=== PATIENT | female | born 1975 | race Caucasian/White ===

== ENCOUNTER 2016-07-17 12:39 | Inpatient (IN) | payer OTHER, SELFPAY ==
[~2016-07-17] VITALS: Ht 161.3 cm; Wt 74.7 kg
[2016-07-17] MEDS ORDERED: CYCLOBENZAPRINE 10 MG TAB PO PRN (15:30)
[2016-07-17] MEDS ORDERED: ONDANSETRON 4MG/2ML VIAL (J2405) IV PRN (15:30)
[2016-07-17] MEDS ORDERED: ACETAMINOPHEN TAB 650MG DOSE (2X325MG) PO PRN (15:30)
[2016-07-17] MEDS ORDERED: ONDANSETRON 4 MG TAB (S0181) PO PRN (15:30)
[2016-07-17 15:35] VITALS: BP 130/80
[2016-07-17 16:07] LABS: BASO % 0.5 % (0.0-1.0); EOS # 0.2 K/mm3 (0.0-0.50); EOS % 2.5 % (0.0-3.0); LARGE UNSTAINED CELL # 0.2 K/mm3 (0.0-0.4); LARGE UNSTAINED CELL % 2.3 % (0.0-4.0); LYMPH # 1.9 K/mm3 (1.5-4.5); LYMPH % 25.7 % (24.0-44.0); MEAN CORPUSCULAR HEMOGLOBIN 29.4 pg (27.0-33.0); MEAN CORPUSCULAR HGB CONC 33.7 g/dl (32.0-36.5); MEAN CORPUSCULAR VOLUME 87.3 fl (80.0-96.0); MONO # 0.4 K/mm3 (0.0-0.8); MONO % 5.2 % (0.0-5.0); NEUTROPHILS # 4.4 K/mm3 (1.8-7.7); NEUTROPHILS % 63.9 % (36.0-66.0); PLATELET COUNT, AUTOMATED 462 k/mm3 (150-450); RED CELL DISTRIBUTION WIDTH 12.4 % (11.5-14.5); WHITE BLOOD COUNT 6.8 K/mm3 (4.0-10.0)
[2016-07-17 16:32] LABS: ALBUMIN 3.5 GM/DL (3.2-5.2); ALKALINE PHOSPHATASE 62 U/L (45-117); ALT/SGPT 50 U/L (12-78); ANION GAP 7 MEQ/L (8-16); AST/SGOT 39 U/L (15-37); BILIRUBIN,TOTAL 0.4 MG/DL (0.2-1.0); BLOOD UREA NITROGEN 6 MG/DL (7-18); CALCIUM LEVEL 8.7 MG/DL (8.5-10.1); CARBON DIOXIDE LEVEL 30 MEQ/L (21-32); CHLORIDE LEVEL 103 MEQ/L (98-107); CREATININE FOR GFR 0.62 MG/DL (0.55-1.02); GLOMERULAR FILTRATION RATE > 60.0 (>58); GLUCOSE, FASTING 93 MG/DL (70-105); MAGNESIUM LEVEL 2.1 MG/DL (1.8-2.4); POTASSIUM SERUM 3.9 MEQ/L (3.5-5.1); SODIUM LEVEL 140 MEQ/L (136-145)
[2016-07-17] MEDS ORDERED: IPRATROPIUM 0.5MG/ALBUTEROL 2.5MG INH SOL UD 3ML (DUONEB)(J7620) NEB PRN (16:45)
--- NOTE | 2016-07-17 17:16 | HPEPDOC ---
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 difficile colitis. She has been complaining of persistent occipital headache that worsens with coughing, and she was transferred from [facility] for neurologic evaluation. The patient reports that she recently moved to the [facility] and was previously stationed in [place]. Around the beginning of June, she was still stationed in [place], she had a hospitalization for rhabdomyolysis. She states that when she got to the [facility] at the very end of June she was experiencing lots of chills as well as sweats and she went to an urgent care center around July 07. She states that she was subsequently prescribed antibiotics for sinus infection, and after being on the antibiotic she began to develop diarrhea. She states that she started coughing about a week before these chills came on in the coughing was accompanied by pain at the base of her head. She states that the pain at the base of her head came on several days after the coughing began, and while it is a somewhat constant dull pain, when she coughs or when there is a pressure change outside, she has an acute feeling as if someone has hit her in the back of her head with a sledgehammer. She states that a few seconds after she stops coughing, the extreme, acute pain subsides. She has been on antitussives as well as morphine at [facility] for the headaches with little improvement. Of note, she states that today the pressure seemed to move from the base of her head to more being on the top of her head. As far as her stool goes, she reports that it was previously watery but has now begun to form and currently looks like softserve ice cream. Past medical history: Recent rhabdomyolysis Past surgical history: Right ACL repair, laparotomy for endometriosis, right tear duct surgery, D&C Family history: One brother with a Chiari malformation and another brother with benign brain tumor Social history: The patient is active-duty and recently moved to the [facility]. She denies ever having smoked and does not use any illicit drugs or drink alcohol. Allergies: Latex, Itraconzaole Review of systems: General: Positive for fever and chills Eyes: Negative for vision changes and ocular discharge ENT: Negative for sore throat and nose bleed Cardiovascular: Negative for chest pain and palpitations Respiratory: Positive for cough and shortness of breath GI: Positive for nausea and diarrhea, negative for vomiting and constipation Musculoskeletal: Negative for neck and back pain Skin: Negative for rash Neuro: Negative for dizziness, numbness, tingling, positive for headache Psych: Positive for anxiety, negative for depression and suicidal ideation Endocrine: Negative for polyuria : Negative for dysuria Heme: Negative for bleeding Home meds: See below Physical exam: Vital signs: Vital Sign - Last 24 Hours 07/17/16 07/17/16 15:35 16:00 Temp 97.1 Pulse 75 Resp 16 B/P (MAP) 130/80 (97) Pulse Ox 99 O2 Delivery Room Air Room Air Gen.: awake, alert, no acute distress Eyes: Extraocular movements intact, normal sclera ENT: Moist mucous membranes Cardiovascular: RRR, no murmurs rubs or gallops Lungs: clear to auscultation bilaterally with the exception of decreased breath sounds in the right base, patient has a deep, wet cough Abdomen: Soft, NT/ND, normal BS Musculoskeletal: normal range of motion Extremities: No peripheral edema Neuro: alert and oriented 3, normal speech, no focal deficits Psych: Normal mood with congruent affect Labs and radiology: See below CBC and CMP are unremarkable Urine culture at [facility] was negative C. 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 difficile colitis. She has been complaining of persistent occipital headache that worsens with coughing, and she was transferred from [facility] for neurologic evaluation. 1. Healthcare associated pneumonia: The patient is afebrile with a normal white count and is not requiring oxygen. We will place her on Levaquin. We will also recheck blood cultures. 2. C. difficile colitis: The patient reports that her diarrhea has started to improve and form up since she was started on Flagyl. We will continue Flagyl. The patient reports that she's been eating very little, so we'll continue her on IV fluids as well as Bacid. 3. Occipital headache, worsened with coughing: We will treat the patient's underlying cough with Tessalon Perles, Mucinex, and TussiCaps. For the headache , we will give her Toradol and Flexeril. I have also spoken with Dr. Buckley of neurology who has graciously agreed to see the patient in consultation. As per his recommendation, we will check an MR venogram to rule out any venous thrombosis. DVT prophylaxis: SCDs Dispo: admit as an inpatient to the service of Dr. Ban Gibbs CODE STATUS: Full code Vital Signs see above Laboratory Data Labs 24H Laboratory Tests 2 07/17/16 15:53: White Blood Count 6.8, Red Blood Count 4.24, Hemoglobin 12.4, Hematocrit 37.0, Mean Corpuscular Volume 87.3, Mean Corpuscular Hemoglobin 29.4, Mean Corpuscular Hemoglobin Concent 33.7, Red Cell Distribution Width 12.4, Platelet Count 462H, Neutrophils (%) (Auto) 63.9, Lymphocytes (%) (Auto) 25.7, Monocytes (%) (Auto) 5.2H, Eosinophils (%) (Auto) 2.5, Basophils (%) (Auto) 0.5, Neutrophils # (Auto) 4.4, Lymphocytes # (Auto) 1.9, Monocytes # (Auto) 0.4, Eosinophils # (Auto) 0.2, Basophils # (Auto) 0.0, Large Unclassified Cells % 2.3 , Large Unclassified Cells # 0.2, Anion Gap 7L, Glomerular Filtration Rate > 60.0, Blood Urea Nitrogen 6L, Creatinine 0.62, Sodium Level 140, Potassium Level 3.9, Chloride Level 103, Carbon Dioxide Level 30, Calcium Level 8.7, Aspartate Amino Transf (AST/SGOT) 39H, Alanine Aminotransferase (ALT/SGPT) 50, Alkaline Phosphatase 62, Total Bilirubin 0.4, Total Protein 7.0, Albumin 3.5, Magnesium Level 2.1, Albumin/Globulin Ratio 1.00 CBC/BMP Laboratory Tests 07/17/16 15:53 Red Blood Count 4.24, Mean Corpuscular Volume 87.3, Mean Corpuscular Hemoglobin 29.4, Mean Corpuscular Hemoglobin Concent 33.7, Red Cell Distribution Width 12.4 , Neutrophils (%) (Auto) 63.9, Lymphocytes (%) (Auto) 25.7, Monocytes (%) (Auto ) 5.2 H, Eosinophils (%) (Auto) 2.5, Basophils (%) (Auto) 0.5, Neutrophils # ( Auto) 4.4, Lymphocytes # (Auto) 1.9, Monocytes # (Auto) 0.4, Eosinophils # (Auto ) 0.2, Basophils # (Auto) 0.0, Calcium Level 8.7, Aspartate Amino Transf (AST/ SGOT) 39 H, Alanine Aminotransferase (ALT/SGPT) 50, Alkaline Phosphatase 62, Total Bilirubin 0.4, Total Protein 7.0, Albumin 3.5 Microbiology Microbiology 07/17/16 Blood Culture, Received Pending 07/17/16 Blood Culture, Received Pending Home Medications No Active Prescriptions or Reported Meds Allergies Coded Allergies: Itraconazole (Verified Allergy, Unknown, 07/17/16) HIVES Latex (Verified Allergy, Unknown, 07/17/16) FAISAL WINSLOW Jul 17, 2016 17:16
[2016-07-17] MEDS: NS 1,000 ML IV SCH (17:30)
[2016-07-17] MEDS: KETOROLAC 30 MG/ML VIAL (J1885) IV PRN (18:10)
[2016-07-17] MEDS: metroNIDAZOLE 500 MG in APPROPRIATE DILUENT 1 EA IV SCH (21:15)
[2016-07-17] MEDS: BENZONATATE 100 MG CAP PO SCH (21:15)
[2016-07-17] MEDS: TUSSICAPS ER 10/8MG CAPSULE PO SCH (21:15)
[2016-07-17] MEDS: guaiFENesin ER 600 MG TAB PO SCH (21:15)
[2016-07-17] MEDS: LACTOBACILLUS ACIDOPHILUS CAP (BACID) PO SCH (21:15)
[2016-07-17 22:00] VITALS: BP 119/55
[2016-07-18] MEDS: metroNIDAZOLE 500 MG in APPROPRIATE DILUENT 1 EA IV SCH ×2 (04:11→13:41)
[2016-07-18] MEDS: NS 1,000 ML IV SCH ×2 (04:11→13:41)
[2016-07-18 05:59] LABS: BASO % 0.6 % (0.0-1.0); EOS # 0.3 K/mm3 (0.0-0.50); EOS % 4.3 % (0.0-3.0); LARGE UNSTAINED CELL # 0.3 K/mm3 (0.0-0.4); LARGE UNSTAINED CELL % 3.7 % (0.0-4.0); LYMPH # 2.5 K/mm3 (1.5-4.5); LYMPH % 32.5 % (24.0-44.0); MEAN CORPUSCULAR HEMOGLOBIN 30.3 pg (27.0-33.0); MEAN CORPUSCULAR HGB CONC 34.3 g/dl (32.0-36.5); MEAN CORPUSCULAR VOLUME 88.5 fl (80.0-96.0); MONO # 0.4 K/mm3 (0.0-0.8); MONO % 6.2 % (0.0-5.0); NEUTROPHILS # 3.7 K/mm3 (1.8-7.7); NEUTROPHILS % 52.7 % (36.0-66.0); PLATELET COUNT, AUTOMATED 461 k/mm3 (150-450); RED CELL DISTRIBUTION WIDTH 12.4 % (11.5-14.5); WHITE BLOOD COUNT 6.9 K/mm3 (4.0-10.0)
[2016-07-18 06:00] VITALS: BP 115/64
[2016-07-18] MEDS: BENZONATATE 100 MG CAP PO SCH ×3 (06:11→21:01)
[2016-07-18 06:21] LABS: ANION GAP 4 MEQ/L (8-16); BLOOD UREA NITROGEN 8 MG/DL (7-18); CALCIUM LEVEL 8.4 MG/DL (8.5-10.1); CARBON DIOXIDE LEVEL 28 MEQ/L (21-32); CHLORIDE LEVEL 108 MEQ/L (98-107); CREATININE FOR GFR 0.64 MG/DL (0.55-1.02); GLOMERULAR FILTRATION RATE > 60.0 (>58); GLUCOSE, FASTING 97 MG/DL (70-105); POTASSIUM SERUM 4.1 MEQ/L (3.5-5.1); SODIUM LEVEL 140 MEQ/L (136-145)
[2016-07-18] MEDS ORDERED: LevoFLOXacin IV 750 MG in APPROPRIATE DILUENT 1 EA IV SCH (07:00)
[2016-07-18] MEDS: KETOROLAC 30 MG/ML VIAL (J1885) IV PRN (07:58)
[2016-07-18] MEDS: TUSSICAPS ER 10/8MG CAPSULE PO SCH ×2 (09:18→21:02)
[2016-07-18] MEDS: LACTOBACILLUS ACIDOPHILUS CAP (BACID) PO SCH ×2 (09:18→21:02)
[2016-07-18] MEDS: guaiFENesin ER 600 MG TAB PO SCH ×2 (09:18→21:02)
--- NOTE | 2016-07-18 12:25 | REP ---
MRA HEAD WITHOUT AND WITH CONTRAST: HISTORY: Headache. CONTRAST: ProHance 13 mL. Unenhanced and enhanced 2D [id number] MR venography were performed. There are no filling defects in the deep venous system or dural sinuses. The sinuses are patent. There is no stenosis. IMPRESSION: There is no sinus thrombosis. Signed by Pastor Lay MD 07/18/2016 12:27 P
[2016-07-18 14:00] VITALS: BP 121/65
--- NOTE | 2016-07-18 14:46 | IPNPDOC ---
Text Note Date of Service The patient was seen on 07/18/16. NOTE Subjective: Patient was seen and examined at bedside. Her chief complaint today continues to be a constant posterior headache that worsens with coughing and straining and has improved with IV Toradol and PO Flexeril. It is currently a 4/10 in severity, down from 8-10/10 at its worse. Of note, she has had a similar headache in the remote past () which quickly subsided after using decongestants and has never had this type of headache last this long. Reports some return of her appetite and improving diarrhea: two soft, formed stools without blood. Still reports a dry cough without sputum production. Her fever and chills at time of admission have since resolved. Some nausea and shortness of breath when she coughs heavily. Denies chest pain, photophobia, stiff neck, abdominal pain, vomiting or constipation. Objective: Vitals: T:98.3F BP:80 RR:16 P:115/64 O2 Saturation: 96% on room air General: Alert. Well nourished female in no acute distress. Appears her stated age. Lying in bed comfortably. Occasionally coughs. HEENT: Head:normocephalic, atraumatic. Eyes: EOMI but eye movement exacerbates her occipital headache. No nystagmus, sclera are nonicteric. Nose: No external lesions Throat: moist buccal mucosa Neck: Supple Respiratory: clear to auscultation bilaterally with no wheezes, rales, or rhonchi - however hard to hear with disposable stethoscope. No respiratory distress or accessory muscle use. Cardiovascular: regular rate and rhythm, with no murmurs, rubs or gallops. Abdomen: mild LLQ tenderness to palpation without rebound. Soft, nondistended, no hepatosplenomegaly appreciated. Bowel sounds present. Extremities: no swelling in either lower extremity bilaterally Neurological: AAOx3. No focal neurologic deficits appreciated bilaterally Integumentary: skin free from rashes, lesions, abrasions Vascular: pulses palpable and symmetrical in upper and lower extremities bilaterally Laboratory data: Labs reviewed. See below for full laboratory data. Microbiology: Urine and blood culture x2 pending Imaging: MRA head: No venous sinus thrombosis Assessment: 41 yo F is presenting for a recent hospitalization of rhabdomyolysis in early June 2016 who was transferred from [facility] where she was admitted with HAP and subsequently developed C. difficile colitis. -Healthcare associated pneumonia: Patient remains afebrile without leukocytosis. Satting well without supplemental oxygen. Patient tolerating PO liquids and solids well. Switched IV Levofloxacin to continue as oral doses. -C. difficile colitis: Diarrhea improving. Also switched IV Flagyl to continue as PO. Discontinued IV fluids as tolerating oral fluids. . -Occipital headache: MRA of the head was negative for venous sinus thrombosis. Will continue to treat cough with Tessalon Perles, Mucinex and TussiCaps. Continue Toradol and Flexeril PRN. Will treat symptomatically and monitor for any changes. Neurology has been consulted: Dr. Buckley. Follow neurology recommendations. DVT prophylaxis: SCDs CODE STATUS: FULL CODE Immunizations as per protocol. My preceptor for this patient encounter was Dr. Ban Gibbs, and was physically present in the building during the encounter and was fully available. As needed , all aspects of the patient interview, examination, medical decision making process, and medical care plan development were reviewed and approved by the preceptor. Preceptor is aware and concurs with the plan as stated in the body of this note and will attest to such by his/her cosignature VS,Angel, I+O VS, Angel, I+O Laboratory Tests 07/17/16 15:53 Red Blood Count 4.24, Mean Corpuscular Volume 87.3, Mean Corpuscular Hemoglobin 29.4, Mean Corpuscular Hemoglobin Concent 33.7, Red Cell Distribution Width 12.4 , Neutrophils (%) (Auto) 63.9, Lymphocytes (%) (Auto) 25.7, Monocytes (%) (Auto ) 5.2 H, Eosinophils (%) (Auto) 2.5, Basophils (%) (Auto) 0.5, Neutrophils # ( Auto) 4.4, Lymphocytes # (Auto) 1.9, Monocytes # (Auto) 0.4, Eosinophils # (Auto ) 0.2, Basophils # (Auto) 0.0, Calcium Level 8.7, Aspartate Amino Transf (AST/ SGOT) 39 H, Alanine Aminotransferase (ALT/SGPT) 50, Alkaline Phosphatase 62, Total Bilirubin 0.4, Total Protein 7.0, Albumin 3.5 07/18/16 05:43 Red Blood Count 3.78 L, Mean Corpuscular Volume 88.5, Mean Corpuscular Hemoglobin 30.3, Mean Corpuscular Hemoglobin Concent 34.3, Red Cell Distribution Width 12.4, Neutrophils (%) (Auto) 52.7, Lymphocytes (%) (Auto) 32.5, Monocytes (%) (Auto) 6.2 H, Eosinophils (%) (Auto) 4.3 H, Basophils (%) ( Auto) 0.6, Neutrophils # (Auto) 3.7, Lymphocytes # (Auto) 2.5, Monocytes # (Auto ) 0.4, Eosinophils # (Auto) 0.3, Basophils # (Auto) 0.0, Calcium Level 8.4 L Vital Signs Date Time Temp Pulse Resp B/P (MAP) Pulse Ox O2 Delivery O2 Flow Rate FiO2 07/18/16 08:00 Room Air 07/18/16 06:00 98.3 16 115/64 (81) 96 07/17/16 22:00 80 I&O- Last 24 Hours up to 6 AM 07/18/16 06:00 Intake Total 240 ml Output Total 1000 ml Balance -760 ml EDY JOSEPH OGME-1 Jul 18, 2016 13:50
[2016-07-18] MEDS: metroNIDAZOLE (FLAGYL) 500 MG TAB PO SCH (21:01)
[2016-07-18 21:50] VITALS: BP 129/75
[2016-07-19] MEDS: metroNIDAZOLE (FLAGYL) 500 MG TAB PO SCH (05:44)
[2016-07-19] MEDS: BENZONATATE 100 MG CAP PO SCH (05:45)
[2016-07-19] MEDS ORDERED: LevoFLOXacin 750 MG TABLET PO SCH (06:00)
[2016-07-19] MEDS: KETOROLAC 30 MG/ML VIAL (J1885) IV PRN (06:37)
[2016-07-19 07:31] LABS: BASO # 0.1 K/mm3 (0.0-0.2); EOS # 0.4 K/mm3 (0.0-0.50); LARGE UNSTAINED CELL # 0.3 K/mm3 (0.0-0.4); LARGE UNSTAINED CELL % 3.7 % (0.0-4.0); LYMPH # 2.6 K/mm3 (1.5-4.5); LYMPH % 36.7 % (24.0-44.0); MEAN CORPUSCULAR HGB CONC 32.1 g/dl (32.0-36.5); MEAN CORPUSCULAR VOLUME 90.6 fl (80.0-96.0); MONO # 0.4 K/mm3 (0.0-0.8); NEUTROPHILS # 3.5 K/mm3 (1.8-7.7); NEUTROPHILS % 48.6 % (36.0-66.0); PLATELET COUNT, AUTOMATED 492 k/mm3 (150-450); RED CELL DISTRIBUTION WIDTH 12.5 % (11.5-14.5); WHITE BLOOD COUNT 7.1 K/mm3 (4.0-10.0)
[2016-07-19 07:32] LABS: ANION GAP 7 MEQ/L (8-16); BLOOD UREA NITROGEN 7 MG/DL (7-18); CALCIUM LEVEL 9.1 MG/DL (8.5-10.1); CARBON DIOXIDE LEVEL 31 MEQ/L (21-32); CHLORIDE LEVEL 104 MEQ/L (98-107); CREATININE FOR GFR 0.69 MG/DL (0.55-1.02); GLOMERULAR FILTRATION RATE > 60.0 (>58); GLUCOSE, FASTING 100 MG/DL (70-105); MAGNESIUM LEVEL 2.2 MG/DL (1.8-2.4); POTASSIUM SERUM 4.2 MEQ/L (3.5-5.1); SODIUM LEVEL 142 MEQ/L (136-145)
[2016-07-19 08:00] VITALS: BP 99/59
[2016-07-19] MEDS: LACTOBACILLUS ACIDOPHILUS CAP (BACID) PO SCH (09:05)
[2016-07-19] MEDS: TUSSICAPS ER 10/8MG CAPSULE PO SCH (09:06)
[2016-07-19] MEDS: guaiFENesin ER 600 MG TAB PO SCH (09:06)
[2016-07-19] MEDS ORDERED: KETOROLAC TROMETHAMINE 10 MG TAB PO PRN (10:00)
[2016-07-19] MEDS ORDERED: BENZ100C5 PO (11:07)
[2016-07-19] MEDS ORDERED: MUCI600T31 PO (11:07)
[2016-07-19] MEDS ORDERED: KETO10TAB PO (11:07)
[2016-07-19] MEDS ORDERED: LEVO750T13 PO (11:07)
[2016-07-19] MEDS ORDERED: METR1TAB66 PO (11:07)
[2016-07-19] MEDS ORDERED: RISATAB3 PO ×2 (11:34→15:35)
[2016-07-19] MEDS ORDERED: TYLE325T5 PO (11:34)
[2016-07-19] MEDS ORDERED: TUSS1CAP5 PO ×2 (13:53→15:35)
[2016-07-19] MEDS ORDERED: BENZ200C53 PO (15:35)
[2016-07-19] MEDS ORDERED: MUCI600T37 PO (15:35)
[2016-07-19] MEDS ORDERED: TYLE500T78 PO (15:44)
--- NOTE | 2016-07-19 16:09 | CR ---
DATE OF CONSULTATION: 07/19/2016 CONSULTATION REPORT FOR: Dr. Betzaida Sykes REASON FOR CONSULTATION: Headache. 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 The patient is here with the chief complaint of a headache which started soon after coughing multiple times. Due to her pneumonia, she has been coughing excessively. She has pain at the back of the head and over the top of the head. The patient denies having any light sensitivity or sound sensitivity with her headache. She states that she has been experiencing some nausea. The patient's vision is stable. She does not have any meningismus. She has not had any fever or elevated white count. The patient did have a head CT which was reportedly normal. The patient was transferred from [facility] where she had that image. The patient is agreeable to undergo an MR venogram to rule out any venous sinus thrombosis. PAST MEDICAL HISTORY: Rhabdomyolysis. PAST SURGICAL HISTORY: Right anterior cruciate ligament (ACL) repair, laparotomy for endometriosis, right tear duct surgery, dilation and curettage. FAMILY HISTORY: Brother with Chiari malformation and brother with brain tumor. SOCIAL HISTORY: The patient denies tobacco use, alcohol or illicit drug use. REVIEW OF SYSTEMS: 14-point review of systems negative except as per history of present illness (HPI). ALLERGIES: LATEX, ITRACONOZOLE. CURRENT MEDICATIONS: - levofloxacin 750 mg - Flagyl - Mucinex - Flexeril 10 mg - ketorolac 15 mg - Bacid - Zofran PHYSICAL EXAMINATION: Blood pressure 130/80, pulse rate 75, respiratory rate 16, temperature is 97.1 degrees Fahrenheit, oxygenation 99% on room air. Current height 63.5 inches and weight 74.7 kg. The patient is alert and oriented to person, place and time. Speech, language, comprehension, and repetition are intact. Pupils are 3 mm round and reactive to light. Deep tendon reflexes are 2+ throughout. Romberg testing deferred. No meningismus on examination. Sensation V1, V2 and V3 intact to light touch. No facial asymmetry on activation. Palate elevates symmetrically. Tongue is midline. No weakness of sternocleidomastoids bilaterally. Strength 5/5 including bilateral deltoids, biceps, triceps and case assembler, iliopsoas, quadriceps, anterior tibialis. Deep tendon reflexes are 2+ throughout. Sensory is intact to light touch in all four extremities and trunk and face. Coordination: Normal [id number] without any signs of ataxia or dysmetria. ASSESSMENT: Episodic headache secondary to excessive coughing, rule out sinus venous thrombosis. PLAN: Recommend MR venogram to exclude any sinus venous thrombosis. Continue supportive care for headache. There is no evidence to suggest the patient has meningitis. I would hold off on doing a spinal tap at this time.
--- NOTE | 2016-07-19 21:56 | DS.PDOC ---
Discharge Summary General Date of Admission Jul 17, 2016 at 15:29 Discharge Summary PROCEDURES PERFORMED DURING STAY: [None]. ADMITTING DIAGNOSES: 1. . 2. . 3. . DISCHARGE DIAGNOSES: 1. . 2. . 3. . COMPLICATIONS/CHIEF COMPLAINT: Pneumonia And C Diff. HISTORY OF PRESENT ILLNESS: . HOSPITAL COURSE: . DISCHARGE MEDICATIONS: Please see below. ALLERGIES: Please see below. PHYSICAL EXAMINATION ON DISCHARGE: VITAL SIGNS: Please see below. GENERAL: HEENT: NECK: CARDIOVASCULAR EXAMINATION: RESPIRATORY EXAMINATION: ABDOMINAL EXAMINATION: EXTREMITIES: SKIN: NEUROLOGICAL EXAMINATION: PSYCHIATRIC EXAMINATION: LABORATORY DATA: Please see below. IMAGING: PROGNOSIS: ACTIVITY: [As tolerated]. DIET: . DISCHARGE PLAN: DISPOSITION: Home, Self-Care. DISCHARGE INSTRUCTIONS: 1. . 2. . 3. . ITEMS TO FOLLOWUP ON ON OUTPATIENT: 1. . 2. . 3. . DISCHARGE CONDITION: [Stable]. TIME SPENT ON DISCHARGE: Greater than minutes. Vital Signs/I&Os Vital Signs Date Time Temp Pulse Resp B/P (MAP) Pulse Ox O2 Delivery O2 Flow Rate FiO2 07/19/16 08:00 99.0 72 16 99/59 (72) 99 Room Air I&O- Last 24 Hours up to 6 AM 07/19/16 06:00 Intake Total 2850 ml Output Total 3500 ml Balance -650 ml Laboratory Data Labs 24H Laboratory Tests 2 07/19/16 06:26: White Blood Count 7.1, Red Blood Count 4.19, Hemoglobin 12.2, Hematocrit 37.9, Mean Corpuscular Volume 90.6, Mean Corpuscular Hemoglobin 29.0, Mean Corpuscular Hemoglobin Concent 32.1, Red Cell Distribution Width 12.5, Platelet Count 492H, Neutrophils (%) (Auto) 48.6, Lymphocytes (%) (Auto) 36.7, Monocytes (%) (Auto) 5.0, Eosinophils (%) (Auto) 5.0H, Basophils (%) (Auto) 1.0, Neutrophils # (Auto) 3.5, Lymphocytes # (Auto) 2.6, Monocytes # (Auto) 0.4, Eosinophils # (Auto) 0.4, Basophils # (Auto) 0.1, Large Unclassified Cells % 3.7 , Large Unclassified Cells # 0.3, Anion Gap 7L, Glomerular Filtration Rate > 60.0, Blood Urea Nitrogen 7, Creatinine 0.69, Sodium Level 142, Potassium Level 4.2, Chloride Level 104, Carbon Dioxide Level 31, Calcium Level 9.1, Magnesium Level 2.2 CBC/BMP Laboratory Tests 07/19/16 06:26 Red Blood Count 4.19, Mean Corpuscular Volume 90.6, Mean Corpuscular Hemoglobin 29.0, Mean Corpuscular Hemoglobin Concent 32.1, Red Cell Distribution Width 12.5 , Neutrophils (%) (Auto) 48.6, Lymphocytes (%) (Auto) 36.7, Monocytes (%) (Auto ) 5.0, Eosinophils (%) (Auto) 5.0 H, Basophils (%) (Auto) 1.0, Neutrophils # ( Auto) 3.5, Lymphocytes # (Auto) 2.6, Monocytes # (Auto) 0.4, Eosinophils # (Auto ) 0.4, Basophils # (Auto) 0.1, Calcium Level 9.1 Microbiology Microbiology 07/17/16 Blood Culture - Preliminary, Resulted No Growth after 48 hours. All Specime... 07/17/16 Blood Culture - Preliminary, Resulted No Growth after 48 hours. All Specime... 07/17/16 Urine Culture - Final, Complete Discharge Medications Scheduled (Laury-Bid Probiotic) 1 Tab Tab, 1 TAB PO BID Chlorphenir/Hydrocod Polistir (Tussicaps 10-8 mg) 1 Cap Cap, 1 CAP PO BID Guaifenesin (Mucinex) 600 Mg Tab, 600 MG PO BID Levofloxacin Hemihydrate (Levofloxacin) 750 Mg Tab, 750 MG PO DAILY Metronidazole (Metronidazole) 500 Mg Tab, 500 MG PO Q8H Scheduled PRN Acetaminophen (Tylenol Extra Strength) 500 Mg Tab, 1,000 MG PO Q6HP PRN for HEADACHE Benzonatate (Benzonatate) 200 Mg Cap, 200 MG PO TID PRN for COUGH MDD 3 Ketorolac Tromethamine (Ketorolac Tromethamine) 10 Mg Tab, 10 MG PO Q8HP PRN for HEADACHE Allergies Coded Allergies: Itraconazole (Verified Allergy, Unknown, 07/17/16) HIVES Latex (Verified Allergy, Unknown, 07/17/16) SWELLING EDY JOSEPH OGME-1 Jul 19, 2016 21:56
--- NOTE | 2016-08-15 17:04 | DS.PDOC ---
Discharge Summary General Date of Admission Jul 17, 2016 at 15:29 Date of Discharge 07/19/16 Attending Physician: BAN GIBBS MD Specialist/Consultants Involve: JOSEPH CURRAN MD Discharge Summary *Please note that this Discharge Summary is for the Day of Discharge: 07/19/16 Consults: Neurology: Dr. Joseph Curran Procedures performed during hospital stay: None Discharge diagnosis: Healthcare Associated Pneumonia C. Difficile Colitis Occipital Headache secondary to excessive coughing H/O Rhabdomyolysis--hospitalization around beginning of June when stationed in [place] [facility] course: 41 yo F with a PMH of recent rhabdomyolysis and no other significant PMH, was transferred from [facility] to [facility] on 07/17/16 for neurologic evaluation for a persistent occipital headache that worsened with coughing. At [facility], the patient was initially admitted for healthcare associated pneumonia and subsequently developed C. difficile colitis. During this hospitalization, patient developed the occipital headache. Apparently, patient was hospitalized for rhabdomyolysis in the beginning of June when she was stationed in [place]. At the end of June, patient came to [place] and began to have chills, sweats, went to an urgent care on July 07, was prescribed antibiotics for sinus infection, and after beginning the antibiotic, she developed diarrhea. She also reported that she had a cough ~1 week before the chills started which was associated with pain at the base of her head. The pain at the base of her head apparently came on several days after her cough began. It was described as a dull constant pain. Came on when she coughed or if there was a pressure change outside. Got better after the coughing stopped. At [facility], patient was treated with antitussives and morphine for the headaches without significant improvement. On admission, patient reported that the pressure in her head moved from the base of her head to the top of her head. Her stools had begun to improve in terms of consistency and became more formed and less watery. 07/17 labs were remarkable for AST of 39, platelets of 462, and monocyte % count of 5.2. Blood cultures and urine cultures were obtained. Blood cx showed NGTD. Urine cx showed no growth. At [facility], patient had a negative urine culture, tested (+) for C. diff, a CXR showed a RLL infiltrate, blood cx were NGTD x 24 hours, CTA of the chest showed no PE, noncontrast CT of the head was unremarkable, and CTA of the brain showed less than 50% narrowing of the extracranial L ICA but no aneurysm and no enhancing abnormality. For HAP, patient was afebrile on admission with a normal WBC and did not require oxygen. We placed her on levaquin and obtained blood cx. For C. diff colitis, we continued the patient on flagyl, continued IV fluids, and continued bacid. For the occipital headache worsened with coughing, we treated the cough with tessalon perles, mucinex, and tussicaps. Treated the headache with toradol and flexeril. A neurology consult was placed for Dr. Curran who recommended to obtain an MR venogram to rule out venous thrombosis. An MRI of head with and without contrast showed no filling defects in the deep venous system or dural sinuses, the sinuses were patent, no stenosis, and there was no sinus thrombosis. Dr. Curran's recommendation was to continue supportive care for the headache and that there was no evidence to suggest meningitis. DVT prophylaxis was provided with SCDs. Patient reported improvement in her headache with toradol and flexeril. On 07/19/16, patient reported improvement in her symptoms. Still had an occipital headache but it was decreased in severity. Reported improvement in her cough. Diarrhea resolved. She was clinically and hemodynamically stable for discharge home. Progress note on date of discharge: 07/19/16 Subjective: Patient was seen and examined at bedside. Admits to constant but improving posterior headache. Toradol and flexeril have been helping. Was rated as a 3-4/ 10 in intensity. Appetite is improving. Diarrhea has mainly resolved with more formed stools. Still admits to a dry cough without sputum production. Denies fevers, chills, chest pain, SOB, nausea, vomiting, abdominal pain, diarrhea, constipation, weakness, fatigue, lightheadedness, dizziness, photophobia, stiff neck. Objective: Vitals: T:99 F BP: 99/59 RR: 16 P: 72 O2 Saturation: 99% on room air General: Pleasant and well appearing adult female. AAO x 3. No acute distress. Appears her stated age. Lying in bed comfortably. HEENT: Head:normocephalic, atraumatic. Eyes: EOMI bilaterally. Sclera are nonicteric. Nose: No external lesions Neck: Supple Respiratory: clear to auscultation bilaterally with no wheezes, rales, or rhonchi. Cardiovascular: regular rate and rhythm, with no murmurs, rubs or gallops. Abdomen: Soft, nontender, nondistended, no hepatosplenomegaly appreciated. Bowel sounds present. Extremities: no swelling in either lower extremity bilaterally Neurological: AAOx3. No focal neurologic deficits appreciated bilaterally Integumentary: skin free from rashes, lesions, abrasions Vascular: +2 radial and dorsalis pedis pulses palpable and symmetric bilaterally. Laboratory data: Please see below. Microbiology: Urine cx: no growth Blood culture x2: NGTD x 5 days. Imaging: MRA head: No venous sinus thrombosis Assessment: 41 yo F presented for persistent occipital headache for further neurologic evaluation and was transferred from [facility] for hospitalization for healthcare associated pneumonia and C. difficile colitis. MRA of the head was negative for venous sinus thrombosis. Disposition: Stable for discharge to home. Patient is to continue PO toradol PRN headache, 3 more days of levaquin, 10 more days of flagyl, and probiotic PRN. In addition, has been prescribed extra strength tylenol PRN headache, benzonatate PRN cough, tussicaps PRN cough, and mucinex. She was instructed to be tested for C. diff 2 weeks from July 15 at her [facility] clinic with her PCP. Advised rest for 3 days. 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 Activity: As tolerated. Diet: As tolerated and to advance to regular as tolerated. Medications on discharge: Please see below. Cc: [facility] Time spent on discharge: 35 minutes. Discharge Medications Scheduled (Laury-Bid Probiotic) 1 Tab Tab, 1 TAB PO BID Chlorphenir/Hydrocod Polistir (Tussicaps 10-8 mg) 1 Cap Cap, 1 CAP PO BID Guaifenesin (Mucinex) 600 Mg Tab, 600 MG PO BID Levofloxacin Hemihydrate (Levofloxacin) 750 Mg Tab, 750 MG PO DAILY Metronidazole (Metronidazole) 500 Mg Tab, 500 MG PO Q8H Scheduled PRN Acetaminophen (Tylenol Extra Strength) 500 Mg Tab, 1,000 MG PO Q6HP PRN for HEADACHE Benzonatate (Benzonatate) 200 Mg Cap, 200 MG PO TID PRN for COUGH MDD 3 Ketorolac Tromethamine (Ketorolac Tromethamine) 10 Mg Tab, 10 MG PO Q8HP PRN for HEADACHE Allergies Coded Allergies: Itraconazole (Verified Allergy, Unknown, 07/17/16) HIVES Latex (Verified Allergy, Unknown, 07/17/16) SWELLING GME ATTESTATION GME ATTESTATION My preceptor for this patient encounter was Dr. Ban Gibbs, and was physically present in the building during the encounter and was fully available. As needed , all aspects of the patient interview, examination, medical decision making process, and medical care plan development were reviewed and approved by the preceptor. Preceptor is aware and concurs with the plan as stated in the body of this note and will attest to such by his/her cosignature. EDY JOSEPH OGME-1 Aug 15, 2016 17:04 BAN GIBBS MD Sep 05, 2016 10:49
[2016-11-09] MEDS ORDERED: MULT1TAB10 PO (11:28)
[2016-11-09] MEDS ORDERED: ZYRT10CA PO (11:28)
== END 2016-07-19 14:08 | disposition home or self-care (01) | DRG 194 ==
LOC: M MSPAV 15:29 → M PED 07-18 21:45
PROVIDERS: ADMIT Hospitalist; ATTEND Internal Medicine Nephrology
DX: J18.9 Pneumonia, unspecified organism (principal); A04.7 Enterocolitis due to Clostridium difficile; M62.82 Rhabdomyolysis; R51 Headache; Z79.899 Other long term (current) drug therapy; Z88.8 Allergy status to other drugs, medicaments and biological substances; Z91.040 Latex allergy status

== ENCOUNTER → 2016-10-24 | Outpatient (CLI) | payer OTHER ==
[~2016-10-24] MED LIST: BENZ100C5 PO; BENZ200C53 PO; KETO10TAB PO; LEVO750T13 PO; METR1TAB66 PO; MUCI600T31 PO; MUCI600T37 PO; MULT1TAB10 PO; RISATAB3 PO; TUSS1CAP5 PO; TYLE325T5 PO; TYLE500T78 PO; ZYRT10CA PO
--- NOTE | 2016-10-24 11:19 | REP ---
Pelvic ultrasound including transabdominal, endovaginal and Doppler ultrasound assessment: The bladder is incompletely distended. The uterus is anteverted and normal size measuring 6.9 x 4.0 x 4.7 cm. There is a 7 mm fibroid. This appears to be submucosal on the event representative images. The endometrium is not thickened measuring 7 mm. The ovaries are normal size. The right ovary measures 2.7 x 1.7 x 2.0 cm. Left ovary measures 2.0 x 1.6 x 1.6. There is vascular flow in both ovaries with the Doppler resistive index of the intraparenchymal arteries on the right measuring 0.601 on the left 0.59. Impression: Probable 7 mm submucosal fibroid. Otherwise, essentially negative pelvic ultrasound. No free pelvic fluid. Depending on symptomatology MRI might be considered for confirmation. Signed by Wilber Ko MD 10/24/2016 11:10 A
== END ==
LOC: M RAD 10:01
PROVIDERS: ATTEND Obstetrics & Gynecology
DX: N93.9 Abnormal uterine and vaginal bleeding, unspecified (principal)

== ENCOUNTER 2016-11-16 06:10 | Day surgery (SDC) | payer OTHER ==
[~2016-11-16] VITALS: Ht 161.3 cm; Wt 67.6 kg
[2016-11-16] MEDS ORDERED: LR 1,000 ML IV SCH ×3 (06:30→09:30)
[2016-11-16 06:35] LABS: MEAN CORPUSCULAR HGB CONC 32.9 g/dl (32.0-36.5); MEAN CORPUSCULAR VOLUME 88.1 fl (80.0-96.0); WHITE BLOOD COUNT 8.6 10^3/uL (4.0-10.0)
[2016-11-16] MEDS ORDERED: LIDOCAINE 2% INJ 100 MG/5 ML SDV (FOR ANES.) As Ordered ONE (06:39)
[2016-11-16] MEDS ORDERED: KETOROLAC 60 MG/2 ML VIAL (J1885) As Ordered ONE (06:39)
[2016-11-16] MEDS ORDERED: dexameTHASONE 4 MG/ML 1ML VIAL (J1100) As Ordered ONE (06:39)
[2016-11-16] MEDS ORDERED: ROCURONIUM BROMIDE 50 MG/5 ML VIAL/SYRINGE As Ordered ONE (06:39)
[2016-11-16] MEDS ORDERED: ONDANSETRON 4MG/2ML VIAL (J2405) As Ordered ONE (06:39)
[2016-11-16] MEDS ORDERED: PROPOFOL 200 MG/20 ML VIAL As Ordered ONE (06:39)
[2016-11-16 06:50] LABS: CONTROL LINE HCG INT CTR LINE PRESENT
[2016-11-16] MEDS ORDERED: METHYLENE BLUE 0.5% (5MG/ML) 10 ML AMP (PROVAYBLUE)(Q9968 PER 1MG) As Ordered ONE (07:18)
[2016-11-16] MEDS ORDERED: BUPIVACAINE HCL 0.25% 30 ML VIAL As Ordered ONE (07:18)
[2016-11-16] MEDS ORDERED: fentaNYL 250 MCG/5 ML INJECTION (J3010) As Ordered ONE (08:15)
[2016-11-16] MEDS ORDERED: MIDAZOLAM INJ 2 MG/2 ML VIAL (J2250) As Ordered ONE (08:15)
[2016-11-16] MEDS ORDERED: NEOSTIGMINE 10 MG/10 ML VIAL (J2710) As Ordered ONE (08:39)
[2016-11-16] MEDS ORDERED: METOCLOPRAMIDE INJ 10MG/2ML VIAL (J2765) IV PRN (09:30)
[2016-11-16] MEDS ORDERED: ONDANSETRON 4MG/2ML VIAL (J2405) IV PRN (09:30)
[2016-11-16] MEDS ORDERED: MEPERIDINE INJ 25 MG/ML VIAL (J2175) IV PRN (09:30)
[2016-11-16] MEDS ORDERED: fentaNYL 100 MCG/2 ML INJECTION (J3010) IV PRN (09:30)
[2016-11-16] MEDS: PERCOCET 5MG/325MG TAB PO PRN ×2 (09:53→10:54)
[2016-11-16 13:08] VITALS: BP 132/65
== END 2016-11-16 13:15 | disposition home or self-care (01) ==
LOC: M SDC 06:10
PROVIDERS: ATTEND Obstetrics & Gynecology
DX: R10.2 Pelvic and perineal pain (principal); N97.9 Female infertility, unspecified; N93.0 Postcoital and contact bleeding; N83.8 Other noninflammatory disorders of ovary, fallopian tube and broad ligament; N86 Erosion and ectropion of cervix uteri; F41.9 Anxiety disorder, unspecified; F32.9 Major depressive disorder, single episode, unspecified; N80.9 Endometriosis, unspecified; Z88.8 Allergy status to other drugs, medicaments and biological substances; Z91.040 Latex allergy status
CPT/HCPCS: 36415; 49320; 58350; 58558; 84703; 85027; 86850; 86900; 86901; 88305; G0123; J1100; J1885; J2250; J2405; J2710; J3010; Q9968

== ENCOUNTER → 2017-02-13 | Outpatient (CLI) | payer OTHER | LOC: M RAD 14:22 | DX: N83.291 Other ovarian cyst, right side (principal); Z3A.01 Less than 8 weeks gestation of pregnancy; Z87.59 Personal history of other complications of pregnancy, childbirth and the puerperium | CPT/HCPCS: 76801 ==

== ENCOUNTER → 2017-02-18 | Outpatient (REF) | payer OTHER ==
[2017-02-18 21:28] LABS: CHLAMYDIA DNA AMPLIFICATION POSITIVE (NEGATIVE); GC DNA AMPLIFICATION NEGATIVE (NEGATIVE)
== END ==
LOC: M LAB REF 17:55
DX: R30.0 Dysuria (principal)
CPT/HCPCS: 87086

== ENCOUNTER 2017-03-10 06:33 | Day surgery (SDC) | payer OTHER ==
[2017-03-10] MEDS ORDERED: dexameTHASONE 4 MG/ML 1ML VIAL (J1100) As Ordered (07:07)
[2017-03-10] MEDS ORDERED: LIDOCAINE 2% INJ 100 MG/5 ML SDV (FOR ANES.) As Ordered (07:07)
[2017-03-10] MEDS ORDERED: KETOROLAC 60 MG/2 ML VIAL (J1885) As Ordered (07:07)
[2017-03-10] MEDS ORDERED: ONDANSETRON 4MG/2ML VIAL (J2405) As Ordered (07:07)
[2017-03-10] MEDS ORDERED: PROPOFOL 200 MG/20 ML VIAL As Ordered (07:07)
[2017-03-10] MEDS ORDERED: MIDAZOLAM INJ 2 MG/2 ML VIAL (J2250) As Ordered (07:08)
[2017-03-10] MEDS ORDERED: fentaNYL 100 MCG/2 ML INJECTION (J3010) As Ordered ×2 (07:08→08:47)
[2017-03-10 07:12] LABS: HEMATOCRIT 37.7 % (36.0-47.0); HEMOGLOBIN 12.6 g/dl (12.0-16.0); MEAN CORPUSCULAR HGB CONC 33.4 g/dl (32.0-36.5); MEAN CORPUSCULAR VOLUME 86.9 fl (80.0-96.0); PLATELET COUNT, AUTOMATED 267 10^3/uL (150-450); RED BLOOD COUNT 4.34 10^6/uL (4.00-5.40); RED CELL DISTRIBUTION WIDTH 12.3 % (11.5-14.5)
[2017-03-10] MEDS: LR 1,000 ML IV (07:28)
[2017-03-10] MEDS: LIDOCAINE 1% SDV INJ 30 ML VIAL As Ordered (07:59)
[2017-03-10] MEDS: SILVER NITRATE APPLICATOR As Ordered (08:15)
[2017-03-10] MEDS ORDERED: ONDANSETRON 4MG/2ML VIAL (J2405) IV (08:45)
[2017-03-10] MEDS ORDERED: LR 1,000 ML IV ×2 (08:45→09:00)
[2017-03-10] MEDS: fentaNYL 100 MCG/2 ML INJECTION (J3010) IV ×2 (08:49→08:54)
[2017-03-10] MEDS: PERCOCET 5MG/325MG TAB PO (08:52)
== END 2017-03-10 11:10 | disposition home or self-care (01) ==
LOC: M SDC 06:33
DX: O02.1 Missed abortion (principal); F41.9 Anxiety disorder, unspecified; F32.9 Major depressive disorder, single episode, unspecified; R21 Rash and other nonspecific skin eruption; F90.9 Attention-deficit hyperactivity disorder, unspecified type; N80.9 Endometriosis, unspecified
CPT/HCPCS: 59820

== ENCOUNTER → 2017-04-18 | Outpatient (REF) | payer OTHER ==
[2017-04-18 11:22] LABS: APPEARANCE, URINE CLEAR (CLEAR); BACTERIA, URINE AUTO NEGATIVE (NEGATIVE); BILIRUBIN, URINE AUTO NEGATIVE (NEGATIVE); BLOOD, URINE BLOOD NEGATIVE (NEGATIVE); COLOR, URINE STRAW (YELLOW); GLUCOSE, URINE (UA) AUTO NEGATIVE (NEGATIVE); KETONE, URINE AUTO NEGATIVE (NEGATIVE); LEUKOCYTE ESTERASE, URINE AUTO TRACE (NEGATIVE); NITRITE, URINE AUTO NEGATIVE (NEGATIVE); PROTEIN, URINE AUTO NEGATIVE (NEGATIVE); RBC, URINE AUTO 1 /HPF (0-3); SPECIFIC GRAVITY URINE AUTO 1.005 (1.002-1.035); SQUAMOUS EPITHELIAL CELL UR AU 1 /HPF (0-6); UROBILINOGEN, URINE AUTO 0.2 mg/dL (0.0-2.0); WBC, URINE AUTO 0 /HPF (0-3)
[2017-04-18 14:00] LABS: CHLAMYDIA DNA AMPLIFICATION NEGATIVE (NEGATIVE); GC DNA AMPLIFICATION NEGATIVE (NEGATIVE)
== END ==
LOC: M LAB REF 10:58
DX: R30.0 Dysuria (principal)
CPT/HCPCS: 81001

== ENCOUNTER 2017-05-19 22:33 | Emergency (ER) | payer OTHER ==
[2017-05-19 23:01] LABS: KETONE, URINE AUTO RFX NEGATIVE (NEGATIVE); RBC, URINE AUTO RFX 0 /HPF (0-3); SQUAM EPITHELIAL CELL UR AURFX 0 /HPF (0-6); WBC, URINE AUTO RFX 3 /HPF (0-3)
[2017-05-19 23:02] LABS: LEUKOCYTE ESTERASE UR AUTO RFX 1+ (NEGATIVE); NITRITE, URINE AUTO RFX POSITIVE (NEGATIVE)
[2017-05-19] MEDS: CIPROFLOXACIN 500 MG TAB PO (23:30)
== END 2017-05-19 23:35 | disposition home or self-care (01) ==
LOC: M ED 22:33
DX: N30.90 Cystitis, unspecified without hematuria (principal); Z88.8 Allergy status to other drugs, medicaments and biological substances; Z91.040 Latex allergy status
CPT/HCPCS: 81001

== ENCOUNTER → 2017-08-02 | Outpatient (REF) | payer OTHER ==
[2017-08-03 09:03] LABS: CHLAMYDIA DNA AMPLIFICATION NEGATIVE (NEGATIVE); GC DNA AMPLIFICATION NEGATIVE (NEGATIVE)
== END ==
LOC: M LAB REF 15:43
DX: Z11.3 Encounter for screening for infections with a predominantly sexual mode of transmission (principal)

== ENCOUNTER → 2017-08-03 | Outpatient (REF) | payer OTHER | LOC: M LAB REF 09:10 | DX: B00.9 Herpesviral infection, unspecified (principal) | CPT/HCPCS: 87255 ==

== ENCOUNTER 2017-11-11 08:23 | Emergency (ER) | payer OTHER ==
[2017-11-11] MEDS: NS 1,000 ML IV (08:40)
[2017-11-11 09:05] LABS: BASO % 0.2 % (0.0-1.0); EOS % 0.3 % (0.0-3.0); IMMATURE GRANULOCYTE % 0.3 % (0-3.0); LYMPH # 2.7 10^3/uL (1.5-4.5); LYMPH % 41.1 % (24.0-44.0); MEAN CORPUSCULAR HEMOGLOBIN 29.1 pg (27.0-33.0); MEAN CORPUSCULAR HGB CONC 32.5 g/dl (32.0-36.5); MEAN CORPUSCULAR VOLUME 89.7 fl (80.0-96.0); MONO # 0.5 10^3/uL (0.0-0.8); NEUTROPHILS # 3.2 10^3/uL (1.8-7.7); NEUTROPHILS % 50.1 % (36.0-66.0); PLATELET COUNT, AUTOMATED 231 10^3/uL (150-450); RED BLOOD COUNT 4.46 10^6/uL (4.00-5.40); RED CELL DISTRIBUTION WIDTH 12.1 % (11.5-14.5); WHITE BLOOD COUNT 6.5 10^3/uL (4.0-10.0)
[2017-11-11 09:33] LABS: ALBUMIN 4.1 GM/DL (3.2-5.2); ALBUMIN/GLOBULIN RATIO 1.21 (1.00-1.93); ALKALINE PHOSPHATASE 57 U/L (45-117); ALT/SGPT 17 U/L (12-78); ANION GAP 5 MEQ/L (8-16); AST/SGOT 14 U/L (7-37); BILIRUBIN,DIRECT 0.2 MG/DL (0.0-0.2); BILIRUBIN,TOTAL 0.4 MG/DL (0.2-1.0); BLOOD UREA NITROGEN 6 MG/DL (7-18); CALCIUM LEVEL 9.1 MG/DL (8.5-10.1); CARBON DIOXIDE LEVEL 29 MEQ/L (21-32); CHLORIDE LEVEL 107 MEQ/L (98-107); CREATININE FOR GFR 0.76 MG/DL (0.55-1.30); GLOMERULAR FILTRATION RATE > 60.0 (>58); GLUCOSE, FASTING 91 MG/DL (70-100); LIPASE 134 U/L (73-393); POTASSIUM SERUM 3.9 MEQ/L (3.5-5.1); SODIUM LEVEL 141 MEQ/L (136-145); TOTAL PROTEIN 7.5 GM/DL (6.4-8.2)
[2017-11-11] MEDS: DICYCLOMINE 10 MG CAP PO (09:38)
[2017-11-11] MEDS: ONDANSETRON 4MG/2ML VIAL (J2405) IV (09:44)
== END 2017-11-11 10:22 | disposition home or self-care (01) ==
LOC: M ED 08:23
DX: R11.0 Nausea (principal); R19.7 Diarrhea, unspecified; F41.9 Anxiety disorder, unspecified; F33.9 Major depressive disorder, recurrent, unspecified; F43.10 Post-traumatic stress disorder, unspecified; K21.9 Gastro-esophageal reflux disease without esophagitis; Z86.19 Personal history of other infectious and parasitic diseases; Z87.09 Personal history of other diseases of the respiratory system; Z87.19 Personal history of other diseases of the digestive system; Z79.899 Other long term (current) drug therapy; Z88.8 Allergy status to other drugs, medicaments and biological substances; Z91.040 Latex allergy status
CPT/HCPCS: J2405

== ENCOUNTER → 2017-11-12 | Outpatient (REF) | payer OTHER | LOC: M LAB REF 21:17 | DX: R19.7 Diarrhea, unspecified (principal) ==

== ENCOUNTER → 2017-11-30 | Outpatient (REF) | payer OTHER ==
[2017-11-30 13:54] LABS: C REACTIVE PROTEIN QUANTITATIV < 0.30 MG/DL (0.00-0.30); COMPLEMENT C3 110 MG/DL (90-180); IMMUNOGLOBULIN G 1390 MG/DL (681-1648); IMMUNOGLOBULIN M 149 MG/DL (40-230)
[2017-11-30 14:19] LABS: ERYTHROCYTE SEDIMENTATION RATE 8 mm/hr (0-20)
[2017-12-05 00:06] LABS: ANA (HEP2) Positive (.); COMPLEMENT TOTAL (CH50) > 65 U/mL (>41); IgG SERUM (part of Subclasses) 1366 mg/dL (700-1600); IgG Subclass 1 803 mg/dL (248-810); IgG Subclass 2 465 mg/dL (130-555); IgG Subclass 3 57 mg/dL (15-102); IgG Subclass 4 135 mg/dL (2-96)
[2017-12-06 10:53] LABS: PTT LUPUS TYPE ANTICOAG SCREEN 0.9 (0-1.2)
== END ==
LOC: M SFHCPLAZ 11:20
DX: A04.71 Enterocolitis due to Clostridium difficile, recurrent (principal); R21 Rash and other nonspecific skin eruption
CPT/HCPCS: 86160

== ENCOUNTER → 2017-12-25 | Outpatient (REF) | payer OTHER ==
[2017-12-25 13:46] LABS: APPEARANCE, URINE CLEAR (CLEAR); BACTERIA, URINE AUTO 1+ (NEGATIVE); BILIRUBIN, URINE AUTO NEGATIVE (NEGATIVE); BLOOD, URINE BLOOD 1+ (NEGATIVE); COLOR, URINE YELLOW (YELLOW); GLUCOSE, URINE (UA) AUTO NEGATIVE (NEGATIVE); KETONE, URINE AUTO NEGATIVE (NEGATIVE); LEUKOCYTE ESTERASE, URINE AUTO TRACE (NEGATIVE); MUCUS, URINE SMALL (NEGATIVE); NITRITE, URINE AUTO NEGATIVE (NEGATIVE); PROTEIN, URINE AUTO NEGATIVE (NEGATIVE); RBC, URINE AUTO 2 /HPF (0-3); SPECIFIC GRAVITY URINE AUTO 1.008 (1.002-1.035); SQUAMOUS EPITHELIAL CELL UR AU 0 /HPF (0-6); UROBILINOGEN, URINE AUTO 0.2 mg/dL (0.0-2.0); WBC, URINE AUTO 11 /HPF (0-3)
== END ==
LOC: M SMT 13:21
DX: N39.0 Urinary tract infection, site not specified (principal)

== ENCOUNTER 2018-02-26 10:18 | Day surgery (SDC) | payer OTHER ==
[~2018-02-26] VITALS: Ht 161.3 cm; Wt 68.9 kg
[~2018-02-26 10:18] MED LIST changes: +ADDE1TAB14 PO; +ADDE25CA PO; +ALIG4CAP; +BENA25CA4 PO; +BENT10CA PO; +BENZ-18 PO; -BENZ100C5 PO; -BENZ200C53 PO; +BENZ200C70 PO; +CIPR-249 PO; +FLUO20CA19; +HAIR1TAB5 PO; +METR-201 PO; -METR1TAB66 PO; +NITR100C2; +PRENCAP9 PO; +PRENTAB55 PO; +PROBCAP4 PO; +PROZ20CA11 PO; +VANC125C2 PO; +VITA-112 PO; +VITA100067 PO; +VITA500C10 PO; +ZOFR4TAB14 PO; +[UNRECOGNIZED DRUG - CODE] PO
[2018-02-26] MEDS ORDERED: NS 1,000 ML IV ONE (11:15)
[2018-02-26] MEDS ORDERED: LIDOCAINE 2% INJ 100 MG/5 ML SDV (FOR ANES.) As Ordered ONE (12:27)
[2018-02-26] MEDS ORDERED: PROPOFOL 200 MG/20 ML VIAL As Ordered ONE (12:27)
--- NOTE | 2018-02-26 12:55 | ROOR ---
Patient Name: Tanvi Ash Procedure Date: 02/26/2018 12:11 PM Date of : 1975 Age: 42 Room: [facility] Gender: Female Note Status: Finalized Procedure: Upper GI endoscopy Indications: Heartburn, Suspected gastro-esophageal reflux disease Providers: Mart Zavala MD Referring MD: BIBIANA MCCARTY MD Requesting Provider: Medicines: Monitored Anesthesia Care Complications: No immediate complications. Procedure: Pre-Anesthesia Assessment: - Prior to the procedure, a History and Physical was performed, and patient medications and allergies were reviewed. The patient is competent. The risks and benefits of the procedure and the sedation options and risks were discussed with the patient. All questions were answered and informed consent was obtained. Patient identification and proposed procedure were verified by the physician, the nurse and the anesthesiologist in the procedure room. Mental Status Examination: alert and oriented. Airway Examination: normal oropharyngeal airway and neck mobility. Respiratory Examination: clear to auscultation. CV Examination: normal. Prophylactic Antibiotics: The patient does not require prophylactic antibiotics. Prior Anticoagulants: The patient has taken no previous anticoagulant or antiplatelet agents. ASA Grade Assessment: II - A patient with mild systemic disease. After reviewing the risks and benefits, the patient was deemed in satisfactory condition to undergo the procedure. The anesthesia plan was to use monitored anesthesia care (MAC). Immediately prior to administration of medications, the patient was re-assessed for adequacy to receive sedatives. The heart rate, respiratory rate, oxygen saturations, blood pressure, adequacy of pulmonary ventilation, and response to care were monitored throughout the procedure. The physical status of the patient was re-assessed after the procedure. The Endoscope was introduced through the mouth, and advanced to the second part of duodenum. The upper GI endoscopy was accomplished without difficulty. The patient tolerated the procedure well. Findings: The Z-line was regular and was found 40 cm from the incisors. The examined esophagus was normal. Patchy mild inflammation characterized by erythema and granularity was found in the gastric antrum. Biopsies were taken with a cold forceps for Helicobacter pylori testing. Verification of patient identification for the specimen was done by the physician and nurse using the patient's name, date and medical record number. Estimated blood loss was minimal. The duodenal bulb and second portion of the duodenum were normal. Impression: - Z-line regular, 40 cm from the incisors. - Normal esophagus. - Gastritis. Biopsied. - Normal duodenal bulb and second portion of the duodenum. Recommendation: - Patient has a contact number available for emergencies. The signs and symptoms of potential delayed complications were discussed with the patient. Return to normal activities tomorrow. Written discharge instructions were provided to the patient. - Resume previous diet. - Continue present medications. - Follow an antireflux regimen. - Await pathology results. - Based on the biopsy results you will receive a phone call from GI clinic in 2-3 weeks to review the pathology results AND/OR your results will be faxed to your Primary care physician. - Return to primary care physician. Mart Zavala MD Mart Zavala MD 02/26/2018 12:55:27 PM This report has been signed electronically. Number of Addenda: 0 Note Initiated On: 02/26/2018 12:11 PM Estimated Blood Loss: Estimated blood loss was minimal.
--- NOTE | 2018-02-26 13:05 | ROOR ---
Patient Name: Tanvi Ash Procedure Date: 02/26/2018 12:13 PM Date of : 1975 Age: 42 [facility]: [facility] Gender: Female Note Status: Finalized Procedure: Colonoscopy Indications: Screening in patient at increased risk: Family history of 1st-degree relative with colorectal cancer before age 60 years Providers: Mart Zavala MD Referring MD: BIBIANA MCCARTY MD Requesting Provider: Medicines: Monitored Anesthesia Care Complications: No immediate complications. Procedure: Pre-Anesthesia Assessment: - Prior to the procedure, a History and Physical was performed, and patient medications and allergies were reviewed. The patient is competent. The risks and benefits of the procedure and the sedation options and risks were discussed with the patient. All questions were answered and informed consent was obtained. Patient identification and proposed procedure were verified by the physician, the nurse and the anesthesiologist in the procedure room. Mental Status Examination: alert and oriented. Airway Examination: normal oropharyngeal airway and neck mobility. Respiratory Examination: clear to auscultation. CV Examination: normal. Prophylactic Antibiotics: The patient does not require prophylactic antibiotics. Prior Anticoagulants: The patient has taken no previous anticoagulant or antiplatelet agents. ASA Grade Assessment: II - A patient with mild systemic disease. After reviewing the risks and benefits, the patient was deemed in satisfactory condition to undergo the procedure. The anesthesia plan was to use monitored anesthesia care (MAC). Immediately prior to administration of medications, the patient was re-assessed for adequacy to receive sedatives. The heart rate, respiratory rate, oxygen saturations, blood pressure, adequacy of pulmonary ventilation, and response to care were monitored throughout the procedure. The physical status of the patient was re-assessed after the procedure. The Colonoscope was introduced through the anus and advanced to the terminal ileum, with identification of the appendiceal orifice and IC valve. The colonoscopy was performed without difficulty. The patient tolerated the procedure well. Findings: The perianal and digital rectal examinations were normal. The terminal ileum appeared normal. Scattered small and large-mouthed diverticula were found from sigmoid to ascending colon. There was no evidence of diverticular bleeding. Non-bleeding external and internal hemorrhoids were found during endoscopy. The hemorrhoids were medium-sized. Retroflexion in the rectum was not performed due to anatomy. Impression: - The examined portion of the ileum was normal. - Moderate diverticulosis from sigmoid to ascending colon. There was no evidence of diverticular bleeding. - Non-bleeding external and internal hemorrhoids. - No specimens collected. Recommendation: - Patient has a contact number available for emergencies. The signs and symptoms of potential delayed complications were discussed with the patient. Return to normal activities tomorrow. Written discharge instructions were provided to the patient. - High fiber diet. - Continue present medications. - Await pathology results. - Repeat colonoscopy in 5 years for screening purposes. - Return to GI clinic in 5 years. Mart Zavala MD Mart Zavala MD 02/26/2018 1:05:14 PM This report has been signed electronically. Number of Addenda: 0 Note Initiated On: 02/26/2018 12:13 PM Estimated Blood Loss: Estimated blood loss was minimal.
[2018-02-26 13:39] VITALS: BP 115/64
== END 2018-02-26 13:39 | disposition home or self-care (01) ==
LOC: M OPP 10:18
PROVIDERS: ATTEND Internal Medicine Gastroenterology
DX: Z86.010 Personal history of colon polyps (principal); Z80.0 Family history of malignant neoplasm of digestive organs; R12 Heartburn; K57.30 Diverticulosis of large intestine without perforation or abscess without bleeding; K64.8 Other hemorrhoids; K29.70 Gastritis, unspecified, without bleeding; F41.9 Anxiety disorder, unspecified; F32.9 Major depressive disorder, single episode, unspecified; F43.10 Post-traumatic stress disorder, unspecified; Z86.19 Personal history of other infectious and parasitic diseases; Z79.899 Other long term (current) drug therapy; Z88.8 Allergy status to other drugs, medicaments and biological substances; Z91.040 Latex allergy status
CPT/HCPCS: 43239; 88305; G0105

== ENCOUNTER 2018-11-09 17:02 | Emergency (ER) | payer OTHER ==
[~2018-11-09] VITALS: Ht 160 cm; Wt 77.7 kg
[~2018-11-09 17:02] MED LIST changes: -METR-201 PO; +METR-265 PO; -VANC125C2 PO; +VANC125C3 PO
[2018-11-09] MEDS ORDERED: PR NPAK3 PO (17:46)
[2018-11-09] MEDS ORDERED: PROZ10CA7 PO (17:46)
[2018-11-09] MEDS ORDERED: CHOL100029 PO (17:47)
[2018-11-09] MEDS ORDERED: CALC500C16 PO (17:47)
[2018-11-09 17:57] LABS: BASO % 0.1 % (0.0-1.0); EOS % 0.3 % (0.0-3.0); HEMATOCRIT 38.8 % (36.0-47.0); HEMOGLOBIN 12.5 g/dl (12.0-15.5); LYMPH # 3.1 10^3/uL (1.5-5.0); LYMPH % 43.6 % (24.0-44.0); MEAN CORPUSCULAR HEMOGLOBIN 28.9 pg (27.0-33.0); MEAN CORPUSCULAR HGB CONC 32.2 g/dl (32.0-36.5); MEAN CORPUSCULAR VOLUME 89.6 fl (80.0-96.0); MONO # 0.4 10^3/uL (0.0-0.8); MONO % 6.1 % (0.0-5.0); NEUTROPHILS # 3.6 10^3/uL (1.5-8.5); NEUTROPHILS % 49.8 % (36.0-66.0); PLATELET COUNT, AUTOMATED 293 10^3/uL (150-450); RED BLOOD COUNT 4.33 10^6/uL (4.00-5.40); WHITE BLOOD COUNT 7.2 10^3/uL (4.0-10.0)
[2018-11-09 18:32] LABS: BLOOD UREA NITROGEN 7 MG/DL (7-18); CALCIUM LEVEL 9.4 MG/DL (8.5-10.1); CARBON DIOXIDE LEVEL 30 MEQ/L (21-32); CHLORIDE LEVEL 106 MEQ/L (98-107); CREATININE FOR GFR 0.71 MG/DL (0.55-1.30); GLOMERULAR FILTRATION RATE > 60.0 (>58); GLUCOSE, FASTING 108 MG/DL (70-100); HCG, SERUM QUANTITATIVE 12 MIU/ML; POTASSIUM SERUM 3.8 MEQ/L (3.5-5.1); SODIUM LEVEL 141 MEQ/L (136-145)
--- NOTE | 2018-11-09 20:00 | REPVR ---
PROCEDURE INFORMATION: Exam: US First Trimester, Transabdominal Exam date and time: 11/09/2018 7:17 PM Clinical history: 43 years old, female; Lmp or gestational age (in weeks): 5w 1d; Other: Vaginal bleeding; ; Additional info: Vaginal bleediing TECHNIQUE: Imaging protocol: Real-time transabdominal obstetrical ultrasound of the maternal pelvis and a first trimester , less than 14 weeks 0 days, with image documentation. COMPARISON: US PELVIC NON-OB COMPLETE 10/24/2016 10:12 AM FINDINGS: Uterus measures 10 x 3.9 x 5.9 cm. No evidence of gestational sac within the endometrial cavity. Endometrial stripe is regular in appearance and measures INPUT mm. Right ovary appears normal, measuring 2.6 x 1.3 x 2.9 cm. Doppler demonstrates normal vascular flow. Left ovary is not visualized. No adnexal mass No abnormal volume of free pelvic fluid. IMPRESSION: No evidence of intrauterine . No ancillary evidence of ectopic , although ectopic cannot be excluded. Differential diagnosis includes spontaneous , very early intrauterine , or ectopic . Electronically signed by: Polo Mejia On 11/09/2018 20:00:08 PM
[2018-11-09 20:31] VITALS: BP 134/72
== END 2018-11-09 20:34 | disposition home or self-care (01) ==
LOC: M ED 17:02
DX: N93.9 Abnormal uterine and vaginal bleeding, unspecified (principal); F33.9 Major depressive disorder, recurrent, unspecified; F41.9 Anxiety disorder, unspecified; F90.9 Attention-deficit hyperactivity disorder, unspecified type; Z98.890 Other specified postprocedural states; Z87.59 Personal history of other complications of pregnancy, childbirth and the puerperium; Z86.2 Personal history of diseases of the blood and blood-forming organs and certain disorders involving the immune mechanism; Z87.42 Personal history of other diseases of the female genital tract; Z87.440 Personal history of urinary (tract) infections; Z91.040 Latex allergy status; Z91.048 Other nonmedicinal substance allergy status; Z88.8 Allergy status to other drugs, medicaments and biological substances

== ENCOUNTER 2018-11-11 12:04 | Emergency (ER) | payer OTHER ==
[~2018-11-11] VITALS: Ht 160 cm; Wt 76.9 kg
[~2018-11-11 12:04] MED LIST changes: +CALC500C16 PO; +CHOL100029 PO; +PR NPAK3 PO; +PROZ10CA7 PO
[2018-11-11] MEDS ORDERED: VITA-158 PO (12:10)
[2018-11-11 13:14] LABS: BASO % 0.1 % (0.0-1.0); EOS % 0.3 % (0.0-3.0); HEMOGLOBIN 12.5 g/dl (12.0-15.5); LYMPH # 2.5 10^3/uL (1.5-5.0); LYMPH % 28.2 % (24.0-44.0); MEAN CORPUSCULAR HEMOGLOBIN 30.2 pg (27.0-33.0); MEAN CORPUSCULAR HGB CONC 33.8 g/dl (32.0-36.5); MEAN CORPUSCULAR VOLUME 89.4 fl (80.0-96.0); MONO # 0.6 10^3/uL (0.0-0.8); MONO % 6.5 % (0.0-5.0); NEUTROPHILS # 5.8 10^3/uL (1.5-8.5); NEUTROPHILS % 64.7 % (36.0-66.0); PLATELET COUNT, AUTOMATED 278 10^3/uL (150-450); RED BLOOD COUNT 4.14 10^6/uL (4.00-5.40); WHITE BLOOD COUNT 8.9 10^3/uL (4.0-10.0)
[2018-11-11 13:33] LABS: BLOOD UREA NITROGEN 7 MG/DL (7-18); CALCIUM LEVEL 8.7 MG/DL (8.5-10.1); CARBON DIOXIDE LEVEL 28 MEQ/L (21-32); CHLORIDE LEVEL 108 MEQ/L (98-107); CREATININE FOR GFR 0.61 MG/DL (0.55-1.30); GLOMERULAR FILTRATION RATE > 60.0 (>58); GLUCOSE, FASTING 123 MG/DL (70-100); HCG, SERUM QUANTITATIVE 4 MIU/ML; POTASSIUM SERUM 3.8 MEQ/L (3.5-5.1); SODIUM LEVEL 141 MEQ/L (136-145)
[2018-11-11 15:29] VITALS: BP 113/64
[2018-11-11] MEDS ORDERED: ACETAMINOPHEN 325 MG TAB PO ONE (15:45)
[2018-11-11] MEDS ORDERED: KETOROLAC 30 MG/ML VIAL (J1885) IV ONE (15:45)
--- NOTE | 2018-11-11 16:36 | REP ---
Obstetric ultrasound for vaginal bleeding and left sided abdominal pain, first trimester: LMP is 10/04/2018. Gestational age by LMP is 5 weeks 3 days. The study is performed with transabdominal and endovaginal and Doppler ultrasound assessment: The uterus is anteverted and normal size measuring 8.1 x 3.9 cm. To the uterine fibroids are identified, one measuring up to 1.3 cm and the other measuring up to 1.1 cm. No intrauterine gestational sac is identified. Right ovary: The right ovary measures 1.3 x 1.8 x 1.3 cm. The right ovary is normal size. There is no dominant right ovarian mass or cyst. There is right ovarian vascular flow with the Doppler resistive index of the parenchymal arteries measuring 0.47. Left ovary: The left ovary measures 2.2 x 1.1 x 1.0 cm and is normal size. There is no dominant left ovarian mass or cyst. There is vascular flow in the left ovary with the Doppler resistive index in the parenchymal arteries measuring 0.56. Left adnexa: There is a complex left adnexal cyst measuring 2.6 x 1.9 x 2.2 cm with increased vascularity at its periphery by color Doppler. This may represent an ectopic gestation. Correlate with the patients quantitative HCG measurements. There is a small volume of free fluid in the left adnexa. Impression: There is a complex cyst in the left adnexa in addition to the left ovary with increased vasculature at its periphery, possibly an ectopic gestation. Correlate with quantitative HCG measurements. There is no intrauterine gestation. There are two uterine fibroids as described. Right ovary is unremarkable. Small volume of free fluid in the pelvis. Electronically Signed by Wilber Ko MD 11/11/2018 04:27 P
[2018-11-11] MEDS ORDERED: KETO10TAB PO (17:23)
== END 2018-11-11 18:05 | disposition home or self-care (01) ==
LOC: M ED 12:04
DX: O03.9 Complete or unspecified spontaneous abortion without complication (principal); N83.292 Other ovarian cyst, left side; Z87.59 Personal history of other complications of pregnancy, childbirth and the puerperium; Z87.42 Personal history of other diseases of the female genital tract; Z87.440 Personal history of urinary (tract) infections; Z98.890 Other specified postprocedural states; Z91.040 Latex allergy status; Z91.048 Other nonmedicinal substance allergy status; Z88.8 Allergy status to other drugs, medicaments and biological substances
CPT/HCPCS: 76801; 76817; 80048; 81001; 84702; 85025; 86850; 86900; 86901; 93976; 96374; 99284; J1885

== ENCOUNTER → 2019-06-10 | Outpatient (CLI) | payer OTHER ==
[~2019-06-10] MED LIST changes: -FLUO20CA19; +FLUO20CA22; +VITA-158 PO
== END ==
LOC: M WHC 13:10
PROVIDERS: ATTEND Family Medicine
DX: R29.4 Clicking hip (principal); M25.551 Pain in right hip

== ENCOUNTER → 2019-06-26 | Outpatient (CLI) | payer OTHER ==
[~2019-06-26] MED LIST changes: +METHACHOLINE KIT (J7674) INH ONE
--- NOTE | 2019-06-26 09:34 | PFTRPT ---
Site: [facility], [address] [place], [address] ID: [id number] Name: GOLDEN BRANCH Visit Date: 06/26/2019 Second ID: [id number] Referring Doctor: Pradeep Carrasco D.O. Reviewing Doctor: Shantanu Ye MD Ed Manager: Twyla Anderson Age: 44 : 1975 Sex: Female Race: Height: 63.50 Inches Weight: 178.00 Lbs BSA: 1.85 Order IDs: [id number] Requested Test(s): <RESP-PFT.BROCHOPROV> Diagnosis: R05 of albuterol for post bronchodilator. Review Status: Not Reviewed Pre-Bronch Post-Bronch Pred Actual %Pred Actual %Chng SPIROMETRY FVC (L) 3.59 2.90 80 3.00 3 FEV1 (L) 2.90 2.49 85 2.53 1 FEV1/FVC (%) 82 86 104 84 -2 FEF 25% (L/sec) 5.33 5.73 107 3.95 -31 FEF 50% (L/sec) 4.11 3.93 95 3.05 -22 FEF 75% (L/sec) 1.59 1.28 80 1.69 32 FEF 25-75% (L/sec) 2.98 3.11 104 2.75 -11 FEF Max (L/sec) 6.84 5.87 85 3.99 -31 FIVC (L) 2.44 2.63 7 FIF 50% (L/sec) 3.89 3.39 87 2.97 -12 FIF Max (L/sec) 3.49 2.98 -14 Expiratory Time (sec) 7.43 7.36 Back Extrap Vol (L) 0.08 0.07 -19 Time To FEFmax (sec) 0.094 0.144 53
== END ==
LOC: M CARPUL 07:59
PROVIDERS: ATTEND Internal Medicine Pulmonary Disease
DX: R05 Cough (principal)

== ENCOUNTER → 2019-06-26 | Outpatient (CLI) | payer OTHER ==
[~2019-06-26] MED LIST changes: -METHACHOLINE KIT (J7674) INH ONE
--- NOTE | 2019-06-27 04:15 | REP ---
Clinical: History of systemic lupus erythematous. Technique: Axial noncontrast images from the thoracic inlet to the upper abdomen using high-resolution technique with images obtained during expiration and inspiration. Coronal and sagittal re-formations obtained. Comparison: None. Findings: The bilateral lung maldonado are essentially symmetric, well aerated, and clear. No significant interstitial changes, consolidation, large nodules or mass lesion appreciated. Very small scattered 2-3 mm nodules cannot definitively be excluded. No effusion. No pneumothorax. No obvious significant asymmetric air trapping is identified. Tracheobronchial tree is patent. Evaluation of the mediastinum demonstrates normal thoracic aorta, pulmonary vasculature, and heart/pericardium. No obvious adenopathy. Surrounding musculoskeletal structures appear intact without focal abnormality. Impression: 1. Essentially normal examination. 2. Very few 2 mm nodules based on expiration images cannot definitively be excluded although findings are not obviously confirmed on inspiration and may be related to decreased volume and crowding. As such, annual follow-up may be warranted unless the patient becomes symptomatic at the interim. Electronically Signed by Akin Baker MD 06/27/2019 04:06 A
== END ==
LOC: M RAD 08:08
PROVIDERS: ATTEND Internal Medicine Pulmonary Disease
DX: M32.10 Systemic lupus erythematosus, organ or system involvement unspecified (principal); R05 Cough
CPT/HCPCS: 71250; 94070; J7674

== ENCOUNTER 2019-08-21 12:06 | Day surgery (SDC) | payer OTHER ==
[~2019-08-21] VITALS: Ht 162.6 cm; Wt 82.1 kg
[~2019-08-21 12:06] MED LIST changes: +ADDE20CA3 PO; +ADV500INH INH; +B-122500 PO; +BIOTIN GUMMIES PO; +D-10TAB2 PO; +LIDOCAINE 1% MDV 20ML VIAL SQ PRN; +LR 1,000 ML IV ONE; +PILO7.5T3 PO; +ZOLO100T PO; +ZOLO50TA PO; +viviscal PO
[2019-08-21 12:44] LABS: HEMATOCRIT 36.1 % (36.0-47.0); HEMOGLOBIN 11.6 g/dl (12.0-15.5); MEAN CORPUSCULAR HEMOGLOBIN 28.5 pg (27.0-33.0); MEAN CORPUSCULAR HGB CONC 32.1 g/dl (32.0-36.5); MEAN CORPUSCULAR VOLUME 88.7 fl (80.0-96.0); PLATELET COUNT, AUTOMATED 305 10^3/uL (150-450); RED BLOOD COUNT 4.07 10^6/uL (4.00-5.40); WHITE BLOOD COUNT 7.7 10^3/uL (4.0-10.0)
[2019-08-21 13:13] LABS: BLOOD UREA NITROGEN 11 MG/DL (7-18); CALCIUM LEVEL 8.6 MG/DL (8.5-10.1); CARBON DIOXIDE LEVEL 25 MEQ/L (21-32); CHLORIDE LEVEL 110 MEQ/L (98-107); CREATININE FOR GFR 0.66 MG/DL (0.55-1.30); GLOMERULAR FILTRATION RATE > 60.0 (>58); GLUCOSE, FASTING 85 MG/DL (70-100); POTASSIUM SERUM 3.9 MEQ/L (3.5-5.1); SODIUM LEVEL 140 MEQ/L (136-145)
[2019-08-21 13:24] LABS: HCG, SERUM QUALITATIVE NEGATIVE (NEGATIVE)
[2019-08-21] MEDS ORDERED: LIDOCAINE 2% 100MG/5ML SDV (FOR ANES.) As Ordered ONE (14:02)
[2019-08-21] MEDS ORDERED: ONDANSETRON 4MG/2ML VIAL As Ordered ONE ×2 (14:02→16:08)
[2019-08-21] MEDS ORDERED: fentaNYL 100 MCG/2 ML INJECTION (J3010) As Ordered ONE (14:02)
[2019-08-21] MEDS ORDERED: propofoL 200 MG/20 ML VIAL As Ordered ONE (14:02)
[2019-08-21] MEDS ORDERED: dexameTHASONE 4 MG/ML 1ML VIAL (J1100 PER 1MG) As Ordered ONE (14:02)
[2019-08-21] MEDS ORDERED: MIDAZOLAM INJ 2MG/2ML VIAL (J2250 PER 1MG) As Ordered ONE (14:02)
[2019-08-21] MEDS ORDERED: LIDOCAINE 1% SDV 30ML VIAL As Ordered ONE (15:16)
[2019-08-21] MEDS ORDERED: BUPIVACAINE/EPIN 0.25% 30 ML VIAL As Ordered ONE (15:17)
[2019-08-21] MEDS ORDERED: ONDANSETRON 4MG/2ML VIAL IV PRN (16:15)
[2019-08-21] MEDS ORDERED: oxyCODONE 5MG TAB PO PRN (16:15)
[2019-08-21] MEDS ORDERED: LR 1,000 ML IV SCH (16:15)
[2019-08-21] MEDS ORDERED: HYDROMORPHONE HCL 0.5 MG/ 0.5 ML SYRINGE (J1170 PER 1) IV PRN (16:15)
[2019-08-21] MEDS ORDERED: fentaNYL 100 MCG/2 ML INJECTION (J3010) IV PRN (16:15)
--- NOTE | 2019-08-21 17:28 | POST-OPPD ---
Postoperative Procedure Note Date Of Procedure: Aug 21, 2019 PREOPERATIVE DIAGNOSIS: Abnormal uterine bleeding POSTOPERATIVE DIAGNOSIS: Abnormal uterine bleeding FINDINGS: bloody, fluffy endometrial lining PROCEDURE: operative hysteroscopy with fractional dilation and curettage SURGEON: osman haile do ADULT FAMILY HOME PROGRAM MANAGER: ANESTHESIA: general SPECIMENS: endometrial curetting ESTIMATED BLOOD LOSS: 10 REPLACED: 1000 DRAINS: none COMPLICATIONS:none Fluid deficit:260cc POSTOPERATIVE CONDITION: stable Hysteroscopic finding: Uterus with bloody endometrial lining consistent with her patient on her 3rd day of her menstrual cycle. Able to visualize right ostia. Right ostia visualized. unable to see left side due to intrauterine blood in the way. Description of procedure: The risks, benefits, indications and alternatives of the procedure were reviewed with the patient and informed written consent was obtained. The patient was taken to the operating room with IV running. She was placed under general anesthesia. Patient placed in lithotomy. The vagina and perineum were prepped and draped in the usual sterile fashion. A speculum was placed into the vagina and the cervix identified. The anterior aspect of the cervix was stabilized with a single-tooth tenaculum. Uterosacral ligaments injected with Marcaine 0.25% with epi. Cervix did not need dilation. A hysteroscope with 0 degree scope introduced. Normal Saline use as distension media. Findings as above. Instruments removed from uterus. Fraction curettage performed and tissue sent to pathology. Procedure completed without issue. Flu id deficit 260cc. All instruments removed from the vagina. Count correct x 2. Patient was taken out of OR in stable condition. OSMAN HAILE DO Aug 21, 2019 17:27
[2019-08-21 17:50] VITALS: BP 123/60
== END 2019-08-21 17:54 | disposition home or self-care (01) ==
LOC: M SDC 12:06
PROVIDERS: ATTEND Obstetrics & Gynecology
DX: N93.9 Abnormal uterine and vaginal bleeding, unspecified (principal); J45.909 Unspecified asthma, uncomplicated; K57.92 Diverticulitis of intestine, part unspecified, without perforation or abscess without bleeding; K21.9 Gastro-esophageal reflux disease without esophagitis; G47.30 Sleep apnea, unspecified; F43.10 Post-traumatic stress disorder, unspecified; F41.9 Anxiety disorder, unspecified; F32.9 Major depressive disorder, single episode, unspecified; F90.9 Attention-deficit hyperactivity disorder, unspecified type; Z79.51 Long term (current) use of inhaled steroids; Z79.899 Other long term (current) drug therapy; Z88.8 Allergy status to other drugs, medicaments and biological substances; Z91.040 Latex allergy status
CPT/HCPCS: 36415; 58558; 80048; 84703; 85027; 88305; J1100; J2250; J2405; J3010

== ENCOUNTER → 2019-09-11 | Outpatient (REF) | payer OTHER ==
[~2019-09-11] MED LIST changes: -LIDOCAINE 1% MDV 20ML VIAL SQ PRN; -LR 1,000 ML IV ONE
== END ==
LOC: M SFHCPLAZ 08:47
PROVIDERS: ATTEND Internal Medicine Infectious Disease
DX: R19.7 Diarrhea, unspecified (principal)

== ENCOUNTER → 2019-10-31 | Outpatient (CLI) | payer OTHER ==
--- NOTE | 2019-10-31 09:13 | REPMRS ---
Patient History The patient states she has not had a clinical breast exam in over a year. Patient is nulliparous. Family history of colorectal cancer at age 34 in mother, breast cancer at age 70 in mother, unknown cancer in maternal grandfather. No Hormone Replacement Therapy Digital Woman Screen Mammo: October 31, 2019 - Exam #: [id number] Bilateral CC and MLO view(s) were taken. Technologist: Milady Chavez, Technologist Prior study comparison: July 24, 2019, bilateral breast MRI, performed at [facility]. August 28, 2018, bilateral digital mammo screening bilat, performed at [facility]. FINDINGS: There are scattered fibroglandular densities. The Volpara volumetric breast density category is:B. There is a 1 cm nodular density in the right upper outer quadrant corresponding to a cyst seen on previous MRI study. This has well-defined smooth borders. It is felt to be unchanged. There has been no change in the appearance of the mammogram from the prior studies. There is a mild amount of scattered fibroglandular density which is fairly symmetric. There is no other interval development of dominant mass, architectural distortion, or grouped microcalcification suggestive of malignancy. 3-D tomosynthesis shows no additional findings. Assessment: BI-RADS/ACR category 2 mammogram. Benign Findings. Recommendation Breast MRI of both breasts in 6 months. Routine screening mammogram of both breasts in 1 year (for women over age 40). This patient's Lifetime Breast Cancer Risk is estimated at 24.8 %. Annual screening Breast MRI scanniing is recommended for patient's whose lifetime risk assessment is over 20%. This mammogram was interpreted with the aid of an FDA-approved computer-aided dectection system. Electronically Signed By: Jacob Bustamante MD 10/31/19 0988
== END ==
LOC: M WHC 08:12
PROVIDERS: ATTEND Obstetrics & Gynecology
DX: Z12.31 Encounter for screening mammogram for malignant neoplasm of breast (principal); Z80.3 Family history of malignant neoplasm of breast; Z80.0 Family history of malignant neoplasm of digestive organs; N60.01 Solitary cyst of right breast

== ENCOUNTER 2020-02-01 17:12 | Emergency (ER) | payer OTHER ==
[~2020-02-01] VITALS: Ht 160 cm; Wt 82.7 kg
[2020-02-01] MEDS ORDERED: KETOROLAC 60MG 2ML VIAL IM ONE (17:45)
[2020-02-01] MEDS ORDERED: LIDOCAINE 5% (LIDODERM) PATCH TD ONE (17:45)
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
[2020-02-01] MEDS ORDERED: CYCLOBENZAPRINE 10MG TABLET PO ONE (18:45)
[2020-02-01] MEDS ORDERED: NORCO, ANEXSIA 5/325MG TABLET (HYDROcodone/ACETAMINOPHEN) PO ONE (18:45)
[2020-02-01] MEDS ORDERED: NORC1TAB7 PO (18:46)
[2020-02-01 18:54] VITALS: BP 156/76
[2020-02-01] MEDS ORDERED: **NOTE PATIENT COMMENT** MISC XX SCH (21:00)
== END 2020-02-01 19:03 | disposition home or self-care (01) ==
LOC: M ED 17:12
DX: S32.010A Wedge compression fracture of first lumbar vertebra, initial encounter for closed fracture (principal); V49.49XA Driver injured in collision with other motor vehicles in traffic accident, initial encounter; Y92.410 Unspecified street and highway as the place of occurrence of the external cause; M32.9 Systemic lupus erythematosus, unspecified; Z79.899 Other long term (current) drug therapy; Z88.8 Allergy status to other drugs, medicaments and biological substances; Z91.040 Latex allergy status; Z91.048 Other nonmedicinal substance allergy status
CPT/HCPCS: 72128; 72131; 96372; 99283; J1885

== ENCOUNTER 2020-04-13 02:10 | Emergency (ER) | payer OTHER ==
[~2020-04-13] VITALS: Ht 160 cm; Wt 85.6 kg
[~2020-04-13 02:10] MED LIST changes: +NORC1TAB7 PO
[2020-04-13 03:34] LABS: BASO % 0.2 % (0.0-1.0); EOS # 0.1 10^3/uL (0.0-0.5); EOS % 0.6 % (0.0-3.0); HEMATOCRIT 37.3 % (36.0-47.0); HEMOGLOBIN 11.5 g/dl (12.0-15.5); LYMPH # 4.1 10^3/uL (1.5-5.0); LYMPH % 32.8 % (24.0-44.0); MEAN CORPUSCULAR HEMOGLOBIN 25.8 pg (27.0-33.0); MEAN CORPUSCULAR HGB CONC 30.8 g/dl (32.0-36.5); MEAN CORPUSCULAR VOLUME 83.6 fl (80.0-96.0); MONO # 0.7 10^3/uL (0.0-0.8); MONO % 5.7 % (2.0-8.0); NEUTROPHILS # 7.6 10^3/uL (1.5-8.5); NEUTROPHILS % 60.5 % (36.0-66.0); PLATELET COUNT, AUTOMATED 320 10^3/uL (150-450); RED BLOOD COUNT 4.46 10^6/uL (4.00-5.40); WHITE BLOOD COUNT 12.6 10^3/uL (4.0-10.0)
[2020-04-13] MEDS ORDERED: COMBIVENT RESPIMAT 100-20MCG INHALER 4GM INH ONE (03:35)
[2020-04-13] MEDS ORDERED: methylPREDNISolone 125MG 2ML VIAL IV ONE (03:35)
--- NOTE | 2020-04-13 04:04 | REPVR ---
PROCEDURE INFORMATION: Exam: XR Chest Exam date and time: 04/13/2020 3:38 AM Age: 45 years old Clinical indication: Chest pain; Type not specified TECHNIQUE: Imaging protocol: XR of the chest Views: 1 view. COMPARISON: CT Chest without contrast 06/26/2019 8:46 AM FINDINGS: Lungs: Unremarkable. No consolidation. Pleural spaces: Unremarkable. No pleural effusion. No pneumothorax. Heart/Mediastinum: Unremarkable. No cardiomegaly. Bones/joints: Unremarkable. IMPRESSION: No acute findings. Electronically signed by: Chanell Nam On 04/13/2020 04:04:46 AM
[2020-04-13 04:05] LABS: BLOOD UREA NITROGEN 12 MG/DL (7-18); CARBON DIOXIDE LEVEL 28 MEQ/L (21-32); CHLORIDE LEVEL 107 MEQ/L (98-107); CK-MB VALUE MASS < 1.0 NG/ML (<3.6); CPK CREATINE PHOSPHOKINASE 114 U/L (26-192); CREATININE FOR GFR 0.73 MG/DL (0.55-1.30); GLOMERULAR FILTRATION RATE > 60.0 (>58); GLUCOSE, FASTING 105 MG/DL (70-100); MB/CK RELATIVE INDEX 0.88 (< OR =4); POTASSIUM SERUM 3.9 MEQ/L (3.5-5.1); SODIUM LEVEL 139 MEQ/L (136-145); TROPONIN I < 0.02 NG/ML (< 0.10)
[2020-04-13] MEDS ORDERED: ISOVUE-370 76% 100ML VIAL As Ordered ONE (04:45)
[2020-04-13] MEDS ORDERED: KETOROLAC 30 MG/ML 1ML VIAL IV ONE (05:20)
--- NOTE | 2020-04-13 05:25 | REPVR ---
PROCEDURE INFORMATION: Exam: CT Angiography Chest With Contrast Exam date and time: 04/13/2020 4:50 AM Age: 45 years old Clinical indication: Chest pain; Additional info: Pleuritic chest pain TECHNIQUE: Imaging protocol: Computed tomographic angiography of the chest with contrast. 3D rendering (Not supervised by radiologist): MIP and/or 3D reconstructed images were created by the technologist. Radiation optimization: All CT scans at this facility use at least one of these dose optimization techniques: automated exposure control; mA and/or kV adjustment per patient size (includes targeted exams where dose is matched to clinical indication); or iterative reconstruction. Contrast material: ISO 370; Contrast volume: 75 ml; Contrast route: INTRAVENOUS (IV); COMPARISON: CT Chest without contrast 06/26/2019 8:46 AM FINDINGS: Pulmonary arteries: The pulmonary arteries are not enlarged. No filling defects are seen to indicate an acute pulmonary embolism. Aorta: There is no thoracic aortic aneurysm or evidence of dissection. Lungs: There is mild, geographic ground-glass opacity in the dependent regions of the bilateral lower lobes and a small amount of dependent ground-glass opacity in the bilateral upper lobes.There is no significant consolidation. There is a stable 4 mm nodule in the right upper lobe anteriorly and inferiorly (image 36 of series 402.) Pleural spaces: No pleural effusions or pneumothorax identified. Heart: The heart is normal in size. Lymph nodes: No lymphadenopathy is seen. Bones/joints: No suspicious osseous lesions. No acute fractures. Soft tissues: The soft tissues appear unremarkable. IMPRESSION: 1. No evidence of acute pulmonary embolism. 2. Mild ground-glass opacity in the dependent regions of both lungs, which is nonspecific but may be due to a mild pneumonitis or to incomplete expansion and mild subsegmental atelectasis. 3. 4 mm right upper lobe nodule, unchanged compared to Jun, 2019. For patients at low risk (minimal or absent history of smoking and of other known risk factors), no routine follow-up is indicated. For patients at high risk (history of smoking or of other known risk factors), consider optional CT Chest at 12 months. (Reference: Chidi) REFERENCES: Chidi Mcmillan et al. Guidelines for Management of Incidental Pulmonary Nodules Detected on CT Images: From the Fleischner Society 2017. Radiology. 2017;284(1):228-243. Electronically signed by: Chanell Nam On 04/13/2020 05:25:18 AM
[2020-04-13] MEDS ORDERED: OXYCODONE/APAP 5MG/325MG(BULK FOR ED) 1 TABLET PO ONE (06:05)
[2020-04-13] MEDS ORDERED: ROPI0.5T3 PO (06:20)
[2020-04-13] MEDS ORDERED: PRED20TA PO (06:21)
[2020-04-13 06:45] VITALS: BP 126/64
--- NOTE | 2020-04-13 15:55 | ECGEPIP ---
[facility] - ED Test Date: 2020-04-13 Pat Name: GOLDEN BRANCH Department: Room: - Gender: Female Digital Account Supervisor: OZIEL : 1975 Requested By: ELIZ Bernal Order Number: [id number] Reading MD: Toro Martins Measurements Intervals [place] Rate: 75 P: 10 LA: 162 QRS: 59 QRSD: 76 T: 3 QT: 382 QTc: 426 Interpretive Statements Normal sinus rhythm NONSPECIFIC T WAVE ABNORMALITY(S) NO PRIORS FOR COMPARISON Electronically Signed on 04-13-2020 15:55:03 EST by Toro Martins
--- NOTE | 2020-04-14 10:27 | ED PDOC ---
Post-Departure Follow-Up dr rapp faxed formal report of ct abd/p for fu Mio Encarnacion MD Apr 14, 2020 10:27
== END 2020-04-13 06:45 | disposition home or self-care (01) ==
LOC: M ED 02:10
DX: R09.1 Pleurisy (principal); M32.9 Systemic lupus erythematosus, unspecified; R91.1 Solitary pulmonary nodule; M35.00 Sjogren syndrome, unspecified; Z79.899 Other long term (current) drug therapy; Z91.040 Latex allergy status; Z91.89 Other specified personal risk factors, not elsewhere classified; Z88.8 Allergy status to other drugs, medicaments and biological substances
CPT/HCPCS: 71045; 71275; 80048; 82550; 82553; 84484; 85025; 93005; 93041; 94760; 96374; 96375; 99285; J1885; J2930; Q9967

== ENCOUNTER 2020-04-20 20:23 | Emergency (ER) | payer OTHER ==
[~2020-04-20] VITALS: Ht 160 cm; Wt 85.3 kg
[~2020-04-20 20:23] MED LIST changes: +PRED20TA PO; +ROPI0.5T3 PO
[2020-04-20] MEDS ORDERED: SING10TA32 PO (20:38)
[2020-04-20 22:02] LABS: BASO % 0.1 % (0.0-1.0); HEMATOCRIT 39.1 % (36.0-47.0); HEMOGLOBIN 12.1 g/dl (12.0-15.5); LYMPH # 2.3 10^3/uL (1.5-5.0); LYMPH % 10.5 % (24.0-44.0); MEAN CORPUSCULAR HEMOGLOBIN 26.1 pg (27.0-33.0); MEAN CORPUSCULAR HGB CONC 30.9 g/dl (32.0-36.5); MEAN CORPUSCULAR VOLUME 84.4 fl (80.0-96.0); MONO # 0.7 10^3/uL (0.0-0.8); NEUTROPHILS % 85.8 % (36.0-66.0); PLATELET COUNT, AUTOMATED 439 10^3/uL (150-450); RED BLOOD COUNT 4.63 10^6/uL (4.00-5.40); WHITE BLOOD COUNT 22.1 10^3/uL (4.0-10.0)
[2020-04-20 22:20] LABS: ERYTHROCYTE SEDIMENTATION RATE 12 mm/hr (0-20)
--- NOTE | 2020-04-20 22:23 | ECGEPIP ---
[facility] - ED Test Date: 2020-04-20 Pat Name: GOLDEN BRANCH Department: Room: - Gender: Female Pre K Lead Teacher: brittany : 1975 Requested By: SKY ROLDAN Order Number: [id number] Reading MD: Sky Diane Measurements Intervals [place] Rate: 98 P: 55 UT: 130 QRS: 61 QRSD: 74 T: 11 QT: 352 QTc: 449 Interpretive Statements Normal sinus rhythm Similar to tracing done 04-13-20 Electronically Signed on 04-20-2020 22:23:46 EDT by Sky Diane
[2020-04-20 22:43] LABS: ALBUMIN 3.8 GM/DL (3.2-5.2); ALT/SGPT 38 U/L (12-78); BILIRUBIN,DIRECT < 0.1 MG/DL (0.0-0.2); BILIRUBIN,TOTAL 0.1 MG/DL (0.2-1.0); BLOOD UREA NITROGEN 15 MG/DL (7-18); C REACTIVE PROTEIN QUANTITATIV 0.47 MG/DL (0.00-0.30); CALCIUM LEVEL 8.7 MG/DL (8.5-10.1); CARBON DIOXIDE LEVEL 29 MEQ/L (21-32); CHLORIDE LEVEL 103 MEQ/L (98-107); CREATININE FOR GFR 1.07 MG/DL (0.55-1.30); FREE T4 0.78 NG/DL (0.76-1.46); GLOMERULAR FILTRATION RATE 59.3 (>58); GLUCOSE, FASTING 169 MG/DL (70-100); LIPASE 191 U/L (73-393); NT-PRO BNP 21 PG/ML (<125); POTASSIUM SERUM 3.9 MEQ/L (3.5-5.1); SODIUM LEVEL 138 MEQ/L (136-145); THYROID STIMULATING HORMONE 0.386 uIU/ML (0.358-3.740); TOTAL PROTEIN 7.6 GM/DL (6.4-8.2)
--- NOTE | 2020-04-20 23:34 | REPVR ---
PROCEDURE INFORMATION: Exam: XR Chest Exam date and time: 04/20/2020 9:51 PM Age: 45 years old Clinical indication: Chest pain; Type not specified TECHNIQUE: Imaging protocol: XR of the chest Views: 1 view. COMPARISON: CR PORTABLE CHEST X-RAY 04/13/2020 3:31 AM FINDINGS: Lungs: Degree of lung inflation is normal. No evidence of pulmonary edema. No focal consolidation or parenchymal lung mass. Pleural spaces: No pleural effusion or pneumothorax. Heart/Mediastinum: Cardiac silhouette appears normal. No adenopathy or hilar mass. Bones/joints: Osseous structures show no concerning abnormality. IMPRESSION: No acute or focal cardiopulmonary process. Electronically signed by: Polo Mejia On 04/20/2020 23:33:34 PM
[2020-04-21 00:19] VITALS: BP 121/65
--- NOTE | 2020-04-21 08:01 | ECGEPIP ---
[facility] - ED Test Date: 2020-04-20 Pat Name: GOLDEN BRANCH Department: Room: - Gender: Female Funeral Attendant: brittany : 1975 Requested By: VERONICA ROLDAN Order Number: [id number] Reading MD: Toro Martins Measurements Intervals [place] Rate: 91 P: 50 MD: 138 QRS: 58 QRSD: 74 T: 8 QT: 372 QTc: 457 Interpretive Statements Normal sinus rhythm POOR R WAVE PROGRESSION NONSPECIFIC T WAVE ABNORMALITY(S) SIMILAR TO 04/20/20 Electronically Signed on 04-21-2020 8:01:16 EDT by Toro Martins
== END 2020-04-21 00:21 | disposition home or self-care (01) ==
LOC: M ED 20:23
DX: R07.89 Other chest pain (principal); J45.909 Unspecified asthma, uncomplicated; K57.32 Diverticulitis of large intestine without perforation or abscess without bleeding; F43.10 Post-traumatic stress disorder, unspecified; Z79.899 Other long term (current) drug therapy; Z91.040 Latex allergy status; Z91.89 Other specified personal risk factors, not elsewhere classified; Z88.8 Allergy status to other drugs, medicaments and biological substances

== ENCOUNTER → 2020-06-03 | Outpatient (CLI) | payer OTHER ==
[~2020-06-03] MED LIST changes: +ARIP1TAB4 PO; +MULTTAB86 PO; +PLAQ200T4 PO; +PROHANCE 279.3MG/ML 15ML VIAL As Ordered ONE; +REFR0.1D OU; +SING10TA32 PO; +XIID5DRO OU
--- NOTE | 2020-06-04 08:43 | REP ---
INDICATION: SOLEDAD BREAST SCREENING W/ DENSE BREAST TISSUE. COMPARISON: Comparison breast MRI study is from 24 July 2019. Comparison mammography 31 October 2019 and 28 August 2018. TECHNIQUE: Three Anum MRI imaging was performed with a dedicated breast coil. Axial, coronal, and sagittal T1 and T2 weighted scans were obtained with and without fat saturation in the usual fashion. The study includes dynamically acquired post gadolinium-enhanced imaging with image subtraction. Maximum intensity projection and multi planar reformation imaging is included as well. This study is interpreted with the aid of Proven, an FDA approved computer aided detection (CAD) software program, on a dedicated breast MRI workstation. The gadolinium enhancement dose is 16 mL of intravenous ProHance. FINDINGS: There is a mild to moderate amount of fibroglandular tissue bilaterally corresponding with the mammographic pattern. There is moderate background parenchymal enhancement. There is no evidence of axillary lymphadenopathy. The 2 previously identified cysts in the right lateral breast are again seen. Each of these is somewhat smaller than on the prior MRI study. 1 contains T1 hyperintense material. Neither show suspicious enhancement. High-resolution pre and post-contrast T1 and T2 weighted scans show no suspicious morphologic abnormality in either breast. Dynamically acquired sequential postcontrast images show no suspicious area of enhancement and washout kinetics in either breast to suggest malignancy. Subtraction images show no additional abnormality. IMPRESSION: BI-RADS category 2 benign bilateral breast MRI findings. <Electronically signed by Jacob Bustamante > 06/04/20 0825
== END ==
LOC: M RAD 15:39
PROVIDERS: ATTEND Family Medicine
DX: R92.2 Inconclusive mammogram (principal); N60.11 Diffuse cystic mastopathy of right breast

== ENCOUNTER 2020-06-08 11:36 | Day surgery (SDC) | payer OTHER ==
[~2020-06-08] VITALS: Ht 160 cm; Wt 83.0 kg
[~2020-06-08 11:36] MED LIST changes: +NS 1,000 ML IV ONE; -PROHANCE 279.3MG/ML 15ML VIAL As Ordered ONE; +fentaNYL 100 MCG/2 ML INJECTION (J3010) As Ordered ONE; +propofoL 500 MG/50 ML VIAL As Ordered ONE
[2020-06-08] MEDS ORDERED: LIDOCAINE 2% 100MG/5ML SDV (FOR ANES.) As Ordered ONE (11:47)
--- NOTE | 2020-06-08 12:57 | ROOR ---
Patient Name: Tanvi Ash Procedure Date: 06/08/2020 12:22 PM Date of : 1975 Age: 45 Room: [facility] Gender: Female Note Status: Finalized Procedure: Upper Endoscopy + Biopsies Indications: Heartburn, Exclusion of Obrien's esophagus, Exclusion of celiac disease Providers: Jose Eduardo Roque MD Referring MD: BIBIANA MCCARTY MD Requesting Provider: Medicines: Monitored Anesthesia Care Complications: No immediate complications. Procedure: Pre-Anesthesia Assessment: - The heart rate, respiratory rate, oxygen saturations, blood pressure, adequacy of pulmonary ventilation, and response to care were monitored throughout the procedure. The Endoscope was introduced through the mouth, and advanced to the second part of duodenum. The upper GI endoscopy was accomplished without difficulty. The patient tolerated the procedure well. Findings: The Z-line was variable and was found 35 cm from the incisors. Multiple biopsies were obtained with cold forceps for evaluation to rule out Obrien's Esophagus randomly at the gastroesophageal junction. A small hiatal hernia was present. No other significant abnormalities were identified in a careful examination of the stomach. The exam of the duodenum was otherwise normal. Biopsies for histology were taken with a cold forceps in the first portion of the duodenum for evaluation of celiac disease. Biopsies were taken with a cold forceps in the gastric antrum for Helicobacter pylori testing. Multiple biopsies were obtained with cold forceps for evaluation to rule out Obrien's Esophagus randomly at the gastroesophageal junction. The exam was otherwise without abnormality. Impression: - Z-line variable, 35 cm from the incisors. - Small hiatal hernia. - The examination was otherwise normal. - Multiple biopsies were obtained at the gastroesophageal junction. - Biopsies were taken with a cold forceps for evaluation of celiac disease. - Biopsies were taken with a cold forceps for Helicobacter pylori testing. - Multiple biopsies were obtained at the gastroesophageal junction. - The examination was otherwise normal. Recommendation: - Patient has a contact number available for emergencies. The signs and symptoms of potential delayed complications were discussed with the patient. Return to normal activities tomorrow. Written discharge instructions were provided to the patient. - High fiber diet. - Discharge patient to home. - Follow an antireflux regimen. - Continue present medications. - Await pathology results. - Telephone GI clinic for pathology results in 1 week. - Return to referring physician. - The findings and recommendations were discussed with the patient. Procedure Code(s): --- Professional --- 16791, Esophagogastroduodenoscopy, flexible, transoral; with biopsy, single or multiple Diagnosis Code(s): --- Professional --- K22.8, Other specified diseases of esophagus K44.9, Diaphragmatic hernia without obstruction or gangrene R12, Heartburn CPT copyright 2019 [employer]. All rights reserved. The codes documented in this report are preliminary and upon knapsack sprayer review may be revised to meet current compliance requirements. Jose Eduardo Roque MD Jose Eduardo Roque MD 06/08/2020 12:57:23 PM Electronically signed by Jose Eduardo Roque MD Number of Addenda: 0 Note Initiated On: 06/08/2020 12:22 PM Estimated Blood Loss: Estimated blood loss: none.
--- NOTE | 2020-06-08 13:13 | ROOR ---
Patient Name: Tanvi Ash Procedure Date: 06/08/2020 12:23 PM Date of : 1975 Age: 45 Room: [facility] Gender: Female Note Status: Finalized Procedure: Total Colonoscopy to Cecum + ileoscopy + Bx Indications: Clinically significant diarrhea of unexplained origin Providers: Jose Eduardo Roque MD Referring MD: BIBIANA MCCARTY MD Requesting Provider: Medicines: Monitored Anesthesia Care Complications: No immediate complications. Procedure: Pre-Anesthesia Assessment: - The heart rate, respiratory rate, oxygen saturations, blood pressure, adequacy of pulmonary ventilation, and response to care were monitored throughout the procedure. The Colonoscope was introduced through the anus and advanced to the terminal ileum, with identification of the appendiceal orifice and IC valve. The colonoscopy was performed without difficulty. The patient tolerated the procedure well. The quality of the bowel preparation was excellent. Findings: The perianal and digital rectal examinations were normal. Non-bleeding internal hemorrhoids were found during retroflexion. The hemorrhoids were small and Grade I (internal hemorrhoids that do not prolapse). Scattered small-mouthed diverticula were found in the recto-sigmoid colon, sigmoid colon and descending colon. The terminal ileum appeared normal. Biopsies for histology were taken with a cold forceps from the ascending colon, transverse colon and descending colon for evaluation of microscopic colitis. The exam was otherwise without abnormality. Impression: - Non-bleeding internal hemorrhoids. - Diverticulosis in the recto-sigmoid colon, in the sigmoid colon and in the descending colon. - The examined portion of the ileum was normal. - The examination was otherwise normal. - Biopsies were taken with a cold forceps from the ascending colon, transverse colon and descending colon for evaluation of microscopic colitis. - The exam was otherwise normal to the cecum. Recommendation: - Patient has a contact number available for emergencies. The signs and symptoms of potential delayed complications were discussed with the patient. Return to normal activities tomorrow. Written discharge instructions were provided to the patient. - Discharge patient to home. - Continue present medications. - Await pathology results. - Telephone GI clinic for pathology results in 1 week. - Repeat colonoscopy in 10 years for screening purposes. - Return to referring physician. - The findings and recommendations were discussed with the patient's family. Procedure Code(s): --- Professional --- 50064, Colonoscopy, flexible; with biopsy, single or multiple Diagnosis Code(s): --- Professional --- K64.0, First degree hemorrhoids R19.7, Diarrhea, unspecified K57.30, Diverticulosis of large intestine without perforation or abscess without bleeding CPT copyright 2019 [employer]. All rights reserved. The codes documented in this report are preliminary and upon program engineer review may be revised to meet current compliance requirements. Jose Eduardo Roque MD Jose Eduardo Roque MD 06/08/2020 1:12:27 PM Electronically signed by Jose Eduardo Roque MD Number of Addenda: 0 Note Initiated On: 06/08/2020 12:23 PM Estimated Blood Loss: Estimated blood loss: none.
[2020-06-08 13:35] VITALS: BP 161/60
== END 2020-06-08 13:45 | disposition home or self-care (01) ==
LOC: M OPP 11:36
PROVIDERS: ATTEND Internal Medicine Gastroenterology
DX: D12.6 Benign neoplasm of colon, unspecified (principal); K57.30 Diverticulosis of large intestine without perforation or abscess without bleeding; K64.0 First degree hemorrhoids; R19.7 Diarrhea, unspecified; K22.8 Other specified diseases of esophagus; K44.9 Diaphragmatic hernia without obstruction or gangrene; K29.70 Gastritis, unspecified, without bleeding; R12 Heartburn; G47.30 Sleep apnea, unspecified; M32.9 Systemic lupus erythematosus, unspecified; N80.9 Endometriosis, unspecified; Z79.899 Other long term (current) drug therapy; Z88.8 Allergy status to other drugs, medicaments and biological substances; Z91.040 Latex allergy status; Z91.048 Other nonmedicinal substance allergy status
CPT/HCPCS: 43239; 45380; 88305; J3010